=== PATIENT | male | born 1970 | race Caucasian/White ===

== ENCOUNTER 2022-09-30 07:32 | Outpatient (REF) | payer OTHER, SELFPAY ==
[2022-09-30 08:30] LABS: Hematocrit 42.4 % (42.0-52.0); Hemoglobin 14.9 g/dl (14.0-18.0); Mean Corpuscular HGB Conc 35.1 g/dl (31.0-36.0); Mean Corpuscular Hemoglobin 27.6 pg (27.0-33.0); Mean Corpuscular Volume 78.5 fL (80.0-98.0); Mean Platelet Volume 9.2 fL (9.4-12.4); Platelet Count 260 X10*3/uL (160-400); Red Cell Distribution Width 13.2 % (11.0-16.0); White Blood Count 4.9 X10*3/uL (4.8-10.8)
[2022-09-30 08:59] LABS: Alanine Aminotransferase 25 U/L (0-40); Albumin Level 4.4 g/dL (3.5-5.0); Alkaline Phosphatase 61 U/L (39-117); Anion Gap 11 (12-20); Aspartate Amino Transferase 18 U/L (5-37); Bilirubin Total 0.6 mg/dL (0.0-1.0); Blood Urea Nitrogen 14 mg/dL (9-16); Calcium 9.3 mg/dL (8.4-10.2); Carbon Dioxide 27 mmol/L (22-29); Chloride 106 mmol/L (96-108); Estimated Glomerular Filt Rate > 60; Glucose Fasting 105 mg/dL (60-99); Potassium 3.7 mmol/L (3.3-5.1); Sodium 140 mmol/L (135-145); Total Protein 6.9 g/dL (6.5-8.0)
[2022-09-30 09:17] LABS: Prostate Specific Antigen Scr 0.63 ng/mL (<0.05-4.0)
[2022-10-05 13:22] LABS: HCV Log PCR <1.18 NOT DETECTED Log IU/mL (NOT DETECTED); HepC Viral Load <15 NOT DETECTED IU/mL (NOT DETECTED)
== END 2022-09-30 07:33 | disposition home or self-care (01) ==
LOC: HO.LAB 07:32
PROVIDERS: PCP Physician Assistant; Visit Provider Physician Assistant
DX: Z13.1 Encounter for screening for diabetes mellitus (principal); Z12.11 Encounter for screening for malignant neoplasm of colon; Z12.5 Encounter for screening for malignant neoplasm of prostate; Z86.19 Personal history of other infectious and parasitic diseases
CPT/HCPCS: 36415; 80053; 84153; 85027; 87522

== ENCOUNTER 2022-10-13 07:35 | Outpatient (REF) | payer OTHER, SELFPAY ==
--- NOTE | ~2022-10-13 | US_ITS ---
EXAMINATION: US ABDOMEN COMPLETE CLINICAL INFORMATION: Personal history of other infectious parasitic diseases. COMPARISON: Ultrasound abdomen complete 08/07/2017 TECHNIQUE: Real-time imaging of the abdominal viscera. FINDINGS: PANCREAS: Normal. ABDOMINAL AORTA: The proximal, mid, and distal segments are normal in caliber. INFERIOR VENA CAVA: Visualized portions are normal. LIVER: Normal. The liver is normal in size. The liver contour is normal. Parenchymal echogenicity is normal. No focal hepatic lesion. There is no intrahepatic biliary duct dilatation seen. GALLBLADDER: Normal. The gallbladder is physiologically distended without evidence of stones, sludge, polyps, wall thickening or pericholecystic fluid. COMMON BILE DUCT: Normal in caliber measuring 0.4 cm in diameter. RIGHT KIDNEY: Benign-appearing renal cyst measuring 0.8 cm. No follow up imaging is recommended. No hydronephrosis or renal calculi. The kidney measures 10.9 cm in maximum dimension. LEFT KIDNEY: Normal. No hydronephrosis. No renal calculi or focal parenchymal lesions. The kidney measures 12.3 cm in maximum dimension. SPLEEN: Normal. The spleen measures 9.5 cm in maximum dimension. FREE FLUID: None. US/US abdomen complete IMPRESSION: Unremarkable abdominal ultrasound.
== END 2022-10-13 07:36 | disposition home or self-care (01) ==
LOC: HO.US 07:35
PROVIDERS: PCP Physician Assistant; Visit Provider Physician Assistant
DX: Z86.19 Personal history of other infectious and parasitic diseases (principal)
CPT/HCPCS: 76700

== ENCOUNTER 2022-11-14 15:23 | Outpatient (AMB) | payer OTHER, SELFPAY ==
--- NOTE | 2022-11-14 15:25 | MHC.OFFVIS ---
Intake Vital Signs 11/14/22 15:28 Height 5 ft 8 in Weight 174 lb 9.698 oz BMI 26.5 BP 129/69 Blood Pressure Location Rt brachial Position Sitting Pulse 66 Intake Visit Reasons: Colonoscopy screening Intake Note: Patient presents to in office visit today for colonoscopy screening. CC: Patient last colonoscopy w/Dr. Hampton, he does not remember exact date. Denies any GI symptoms or concerns today. 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 He is referred by Pieter Moe of [facility] primary care. PMX History of hepatitis C * SURGICAL HISTORY Lumbar laminectomy - L4=L5 Knee surgery - meniscus Pyloric stenosis at * ALLERGIES Fentanyl - skin eruption * [facility] LABS: Laboratory Tests 09/30/22 09/30/22 09/30/22 08:09 08:09 08:09 WBC 4.9 Hgb 14.9 Hct 42.4 Plt Count 260 Estimated GFR > 60 Total Bilirubin 0.6 AST 18 ALT 25 Alkaline Phosphata se 61 Hep C Viral Load <15 NOT DETECTED Hep C Viral Load L og <1.18 NOT DETECTE D US ABD 10/13/22 FINDINGS: PANCREAS: Normal. ABDOMINAL AORTA: The proximal, mid, and distal segments are normal in caliber. INFERIOR VENA CAVA: Visualized portions are normal. LIVER: Normal. The liver is normal in size. The liver contour is normal. Parenchymal echogenicity is normal. No focal hepatic lesion. There is no intrahepatic biliary duct dilatation seen. GALLBLADDER: Normal. The gallbladder is physiologically distended without evidence of stones, sludge, polyps, wall thickening or pericholecystic fluid. COMMON BILE DUCT: Normal in caliber measuring 0.4 cm in diameter. RIGHT KIDNEY: Benign-appearing renal cyst measuring 0.8 cm. No follow up imaging is recommended. No hydronephrosis or renal calculi. The kidney measures 10.9 cm in maximum dimension. LEFT KIDNEY: Normal. No hydronephrosis. No renal calculi or focal parenchymal lesions. The kidney measures 12.3 cm in maximum dimension. SPLEEN: Normal. The spleen measures 9.5 cm in maximum dimension. FREE FLUID: None. US/US abdomen complete IMPRESSION: Unremarkable abdominal ultrasound. ? TODAY'S VISIT He had a prior colonoscopy with Dr. Hampton that was performed for diarrhea and was normal. Now has only occasional diarrhea when he eats too much salad. He denies any bowel or upper GI problems. There are no prior problems with anesthesia or sedation. He denies any cardiac or respiratory problems. He had Hep C with tx and successful SVR. There is no known FHX of crc or polyps. [facility] Surgical History (Updated 11/14/22 @ 15:48 by ANA Luna) H/O laminectomy H/O: knee surgery S/P pyloromyotomy, follow-up exam Social History (Updated 09/27/22 @ 14:28 by Pieter Moe PA-C) Housing: Apartment Alcohol intake: former Year quit: 2017 Patient Tobacco Use Status: Former Tobacco user Quit Date: 2017 e-Cigarette/Vaping Use: Never Used Second Hand Smoke Exposure: Yes service: No Current occupational status: employed Current occupation: Seasonal employee Cognitive needs: No Hearing needs: No Vision needs: No Review of Systems Const Denies fatigue, Denies fever(s), Denies night sweats, Denies poor appetite and Denies weight loss ENT Reports Normal hearing present, Denies dental pain, Denies dysphagia, Denies hearing loss, Denies mouth pain, Denies odynophagia, Denies throat swelling, Denies tongue swelling and Reports other (Dentition adequate) Card Reports no additional complaints Resp Reports no additional complaints GI Denies abdominal pain, Denies melena, Denies bloating, Denies hematochezia, Denies constipation, Denies GI cramping, Denies dysphagia, Denies excessive flatus, Denies early satiety, Denies heartburn, Denies diarrhea, Denies nausea, Denies odynophagia, Denies vomiting and Denies hematemesis Skin/Breast Denies pruritus, Denies lesions, Denies rash and Denies jaundice Neuro Reports Normal hearing present and Denies Abnormal speech present Endo Denies fatigue Aller/Immun Denies throat swelling and Denies tongue swelling Physical Exam Const General: cooperative, no acute distress, well developed and well groomed Nutritional Appearance: well nourished and obese centrally obese Orientation/consciousness: oriented to person, oriented to place and oriented to time Limitations: No language barrier HEENT Head: Yes normocephalic and Yes atraumatic Eyes General: appearance normal, both eyes and all related structures Pupils: Equal, round and reactive pupils present Neck Neck: Yes normal visual inspection and Yes no lymphadenopathy Thyroid: Thyroid normal Resp Effort & Inspection: normal respiratory effort and able to speak in complete sentences Auscultation: clear to auscultation bilaterally Cardio Rate: regular rate Rhythm: regular rhythm Heart sounds: Normal, physiologic split S2 sound present Peripheral pulses: radial pulses present and posterior tibial pulses present GI Inspection: No distended, No Abdominal panniculus present, Yes obesity and Yes scar Palpation (GI): Soft to palpation, nontender, no guarding, not rigid and No hepatosplenomegaly present Percussion: Yes normal to percussion Auscultation: normal bowel sounds Rectal Exam - Male: Yes deferred Abdomen image: 1. well healed surgical scars 2. Skin General skin exam: no rashes or lesions noted, turgor normal, skin not dry, no jaundice, No spider nevi and no striae Rashes: no rashes Nails: normal Neuro General: oriented to person, oriented to place and oriented to time Cranial nerves: Yes Equal, round and reactive pupils present and Yes Normal hearing present Speech: No Abnormal speech present Extrem General: Yes normal to inspection, No clubbing, No cyanosis and No edema Psych Appearance: grossly normal and well kempt Mental Status: mental status grossly normal Speech and movement: Normal speech and movement present Affect: normal affect Attitude: cooperative Thought process: Normal thought process present and not confabulating Thought content: Normal thought content present Insight: Fair insight present (Psych) Judgement: Fair judgement present (Psych) Assessment & Plan Assessment & Plan (1) Pre-op examination: Code(s): Z01.818 - Encounter for other preprocedural examination Plan: He had a prior colonoscopy with Dr. Hampton that was performed for diarrhea and was normal. Now has only occasional diarrhea when he eats too much salad. He denies any bowel or upper GI problems. There are no prior problems with anesthesia or sedation. He denies any cardiac or respiratory problems. He had Hep C with tx and successful SVR. There is no known FHX of crc or polyps. Coding Level of Care Code New Pt Level 3 (87531) Diagnoses Pre-op examination Z01.818
[2022-11-14 15:28] VITALS: BP 129/69; PULSE 66; BMI 26.5
== END 2022-11-14 16:06 | disposition home or self-care (01) ==
PROVIDERS: PCP Physician Assistant; Visit Provider Nurse Practitioner
DX: Z01.818 Encounter for other preprocedural examination (principal); Z12.11 Encounter for screening for malignant neoplasm of colon
CPT/HCPCS: 99203

== ENCOUNTER → 2022-11-14 15:23 | Outpatient (BNVA) | payer OTHER, SELFPAY | PROVIDERS: PCP Physician Assistant; Visit Provider Nurse Practitioner | DX: Z01.818 Encounter for other preprocedural examination (principal) | CPT/HCPCS: 99202 ==

== ENCOUNTER 2023-02-15 14:45 | Outpatient (AMB) | payer OTHER, SELFPAY ==
[2023-02-15 14:56] VITALS: BP 116/76; PULSE 65; O2SAT 98; BMI 27.0
--- NOTE | 2023-02-15 14:56 | MHC.PC.OV ---
Vital Signs 02/15/23 14:56 Height 5 ft 8 in Weight 177 lb 8 oz BMI 27.0 BP 116/76 Blood Pressure Location Lt brachial Position Sitting Pulse 65 Pulse Oximetry (%) 98 Oxygen Delivery Method Room Air Intake Visit Reasons: pe Intake Note: Patient is here today for a physical. Manager Of Selection And Assessment Required: No Accompanied by: Self / Same As Patient Allergies fentanyl [Fentanyl] Allergy (Unknown, Verified 02/15/23 15:17) SWELLING Medication List - Last Reconciled 02/15/23 by Pieter Moe PA-C No Known Home Meds Tobacco use date assessed: 09/27/22 Dental Screening Dental Screen Date: 02/15/23 Did you have a dental visit in the last 12 months?: No Did you have a dental problem in the last 6 months where you did not have access to dental care?: No Was dental information given to patient?: No HPI pe HPI Details Patient is a 53-year-old today for annual physical. Previous PCP was Dr. Llanes. Patient has a history of chronic hepatitis C, lower back pain. 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 History of Hep C- viral load testing negative . Lumbar disc disease: Has had surgery on his lumbar disc and past with good effect on reducing his pain. He does intermittently lower lumbar spine pain which he has been managing with marijuana per .. Colon cancer screening: Has follow-up with GI and is scheduled for colonoscopy in near future. Vaccines: Up-to-date with COVID vaccine, and tetanus vaccine, Willing to get flu vaccine Laboratory Tests 09/30/22 08:09 Hgb 14.9 Creatinine 0.74 Fasting Glucose 105 H PSA Screen 0.63 PFSH Surgical History S/P pyloromyotomy, follow-up exam H/O: knee surgery H/O laminectomy Social History (Updated 02/15/23 @ 15:22 by Pieter Moe PA-C) Housing: Apartment Alcohol intake: former Year quit: 2017 Patient Tobacco Use Status: Former Tobacco user Quit Date: 2017 e-Cigarette/Vaping Use: Never Used Second Hand Smoke Exposure: Yes Substance Use Type: Marijuana service: No Current occupational status: employed Current occupation: Seasonal employee Cognitive needs: No Hearing needs: No Vision needs: No Questionnaire Thrive Questionnaire Date Thrive assessed: 09/27/22 ELEANOR-7 AMB Questionnaire ELEANOR-7 Date ELEANOR - 7 assessed: 09/27/22 Source: Developed by Drs. Hector Terry, Toya Mccray, Rupert Roy and colleagues, with an educational jose from [employer]. Review of Systems Const Denies body aches, Denies chills, Denies excessive sweating, Denies fatigue, Denies fever(s) and Denies headache(s) Eyes Denies blurry vision ENT Denies dysphagia, Denies vertigo, Denies dizziness, Denies headache(s), Denies hearing loss and Denies tinnitus Card Denies chest pain, Denies chest pain with activity, Denies syncope, Denies irregular heart rhythm and Denies dyspnea Resp Denies chest congestion, Denies cough, Denies hemoptysis, Denies dyspnea and Denies wheezing GI Denies abdominal pain, Denies melena, Denies hematochezia, Denies coffee ground emesis, Denies dysphagia, Denies diarrhea, Denies nausea and Denies vomiting Denies difficulty urinating, Denies dysuria, Denies urinary frequency, Denies urinary hesitancy and Denies urinary urgency Musc Denies arthralgias, Denies limited range of motion, Denies muscle cramps and Denies muscle weakness Skin/Breast Denies rash and Denies skin ulcer Neuro Denies Abnormal speech present, Denies confusion, Denies vertigo, Denies dizziness, Denies syncope, Denies headache(s), Denies memory loss and Denies seizure-like activity Psych Denies anxiety, Denies confusion, Denies depression, Denies memory loss, Denies panic attacks and Denies paranoia Endo Denies excessive sweating, Denies fatigue, Denies flushing, Denies polydipsia and Denies polyuria Aller/Immun Denies wheezing Physical exam (Primary Care) Vital Signs: Last Vital Signs Pulse 65 02/15/23 14:56 BP 116/76 02/15/23 14:56 Pulse Ox 98 02/15/23 14:56 Oxygen Delivery Method Room Air 02/15/23 14:56 BMI result Body Mass Index 27.0 Tobacco/Smoking Status: Tobacco use Status Tobacco use date assessed 09/27/22 02/15/23 15:10 Patient Tobacco Use Status Former Tobacco user 02/15/23 15:22 e-Cigarette/Vaping Use Never Used 02/15/23 15:22 Thrive Assessment: Date of Thrive Assessment Date Thrive assessed 09/27/22 02/15/23 15:10 Const General: cooperative, comfortable, no acute distress, alert and awake; No confusion Orientation/consciousness: oriented to person, oriented to place, patient oriented x3 and No confusion HENMT Head: Yes normocephalic Ears: external ears normal and TM's normal bilaterally Face and sinus: No sinus tenderness Mouth: Normal oral and palatal mucosa present and tongue normal Teeth and gingiva: dentition normal and gingiva normal Throat: Yes posterior oropharynx normal, Yes tonsils normal and Yes uvula midline Eyes Conjunctivae: conjunctivae normal Sclerae: sclerae normal Pupils: Equal, round and reactive pupils present EOM: EOMs intact bilaterally Direct Ophthalmoscopy: No no photophobia Neck Neck: Yes no lymphadenopathy, No tender and Yes no JVD Thyroid: Thyroid normal Carotids: no bruits Chest Chest palpation & inspection: no tenderness Resp Effort & Inspection: normal respiratory effort, no audible wheezes, not labored and no stridor Auscultation: no crackles, no rales, no rhonchi and no wheezes Cardio Jugular venous distension: no JVD Rate: regular rate, not bradycardic and not tachycardic Rhythm: regular rhythm Bruits: no carotid bruits Peripheral pulses: Peripheral pulses 2+ throughout GI Inspection: Yes normal to inspection, No abdominal wall ecchymosis and No visible herniation Palpation (GI): Soft to palpation, nontender, no guarding, not rigid and No hepatosplenomegaly present Auscultation: normoactive bowel sounds General: Yes no CVA tenderness Back/Spine/Pelvis Back: no CVA tenderness and No back tenderness Cervical Spine: cervical ROM normal Thoracic/Lumbar Spine: thoracic and lumbar spine normal to inspection, straight leg raise negative bilaterally, No thoraco-lumbar ROM limited and No lumbar spinal tenderness Skin Lesions: no lesions Rashes: no rashes Wounds: no wounds Neuro General: oriented to person, oriented to place, patient oriented x3, CN's II-XI intact bilaterally and No confusion Cranial nerves: Yes Equal, round and reactive pupils present and Yes Normal accommodation reflex present Cognition (Neuro): normal cognition Speech: No Abnormal speech present Gait exam (Neuro): Normal gait present Motor exam (neuro): 5/5 motor strength present throughout Extrem Right upper extremity: full ROM; no cyanosis Left upper extremity: full ROM; no cyanosis Right lower extremity: no edema Left lower extremity: no edema Psych Appearance: grossly normal Mental Status: mental status grossly normal Affect: normal affect Attitude: cooperative Thought process: Normal thought process present Office Procedures Flu Questionnaire Does the patient have a severe egg allergy?: No Does the patient have severe life threatening allergies?: No Does the patient have a fever or illness today?: No Has the patient ever had Guillain-Gilcrest Syndrome?: No Has the patient ever had any past reaction to a flu shot?: No Immunizations flu vacc [id number] 6mos up(PF) 60 mcg(15 mcgx4)/0.5 mL IM syringe Performing Provider: Pieter Moe PA-C Performing Location: [facility] Administered by: YNES Pruitt on 02/15/23 15:41 Dose Route Admin Location Dispensed Lot Number Expiration Date [employer] Maintenance Technician 0.5 mL IM Left Deltoid 0.5 mL [id number] 10/14/23 87310-804-71 [employer] VIS Given Date VIS Provided VIS Publication Date 02/15/23 Single Vaccine 20 Eligibility Eligibility Date Funding Source Not [facility] Eligible 02/15/23 Private Assessment and Plan Assessment & Plan (1) Annual physical exam: Code(s): Z00.00 - Encounter for general adult medical examination without abnormal findings (2) History of hepatitis C: Code(s): Z86.19 - Personal history of other infectious and parasitic diseases Plan: Does have history of appetite is C was treated. Most recent hepatitis C viral load undetectable. (3) Screening for diabetes mellitus (DM): Code(s): Z13.1 - Encounter for screening for diabetes mellitus (4) Colon cancer screening: Code(s): Z12.11 - Encounter for screening for malignant neoplasm of colon Plan: Has had pre colonoscopy screening. Will be awaiting colonoscopy procedure. (5) Epigastric abdominal tenderness on direct palpation: Code(s): R10.816 - Epigastric abdominal tenderness Plan: Still present though not severe. Ultrasound was of abdomen unremarkable Unclear etiology at this time as he has no GI complaints. (6) Impaired glucose metabolism: Code(s): R73.09 - Other abnormal glucose Plan: Most recent fasting labs showing elevated fasting blood sugar 105. Will recheck at next lab draw and add on A1c. Orders: Orders Hemoglobin A1c 11 Months R73.09 - Other abnormal glucose Comprehensive [place]. Panel Fast 11 Months R73.09 - Other abnormal glucose Prostate Specific Antigen Scr 11 Months R73.09 - Other abnormal glucose, Z12.5 - Encounter for screening for malignant neoplasm of prostate Influenza [id number] Immunization 02/15/23 Z23 - Encounter for immunization Coding Level of Care Code Est Pt Prev Care 40-64y(64661) Diagnoses Annual physical exam Z00.00 History of hepatitis C Z86.19 Screening for diabetes mellitus (DM) Z13.1 Colon cancer screening Z12.11 Epigastric abdominal tenderness on direct palpation R10.816 Impaired glucose metabolism R73.09
== END 2023-02-15 15:40 | disposition home or self-care (01) ==
PROVIDERS: PCP Physician Assistant; Visit Provider Physician Assistant
DX: Z23 Encounter for immunization (principal)
CPT/HCPCS: 90471; 90686; 99396

== ENCOUNTER 2024-06-04 08:33 | Outpatient (AMB) | payer OTHER, SELFPAY ==
--- OUTSIDE RECORDS SUMMARY | 2024-06-04 08:38 | XMS_ITS | Clinical Summary ---
Author Organization [facility] Address [address] [place] [address] Phone Care Team Providers Care Clinical Radiologist Name Role Phone Pieter Moe Primary Care Provider Allergies Active Allergy Reactions Criticality Noted Date Comments Fentanyl Hcl Hives 02/28/2024 Medications No known medications Surgical History Surgery Date Site/Laterality Comments BACK SURGERY Social History Tobacco Use Types Packs/Day Years Used Date Smoking Tobacco: Never Smokeless Tobacco: Never Tobacco Cessation:Counseling Given: Not Answered Sex and Gender Information Value Date Recorded Sex Assigned at Male 02/28/2024 11:11 AM EST Legal Sex Male 1:09 PM EST Gender Identity Male 02/28/2024 11:11 AM EST Sexual Orientation Straight 02/28/2024 11 :11 AM EST Obstetrics History Last Filed Vital Signs Vital Sign Reading Time Taken Comments Blood Pressure 146/91 02/28/2024 11:09 AM EST Pulse 89 02/28/2024 11:09 AM EST Temperature 37 ??C (98.6 ??F) 02/28/2024 11: 09 AM EST Respiratory Rate 20 02/28/2024 11:0 9 AM EST Oxygen Saturation 97% 02/28/2024 11: 09 AM EST Inhaled Oxygen Concentration - - Weight 78.4 kg (172 lb 12.8 oz) 024 11:09 AM EST Height 172.7 cm (5' 8 ) 02/28/2024 11:0 9 AM EST Body Mass Index 26.27 02/28/2024 11:09 AM EST Plan of Treatment Health Maintenance Due Date Last Done Comments Hepatitis B Vaccines (3 of 3 - 19+ 3-dose series) 07/12/2016 05/17/2016, 05/16/2016, 11/24/2015 Pneumococcal Vaccine: 50+ Years (1 of 1 - PCV) 02/15/2022 Zoster Vaccines (1 of 2) 02/15/2022 Cholesterol Screening (Lipid Panel) 03/14/2022 Colorectal Cancer Screening: Colonoscopy 03/14/2022 Depression Screening 03/14/2022 HIV Screening 03/14/2022 Hepatitis C Screening 03/14/2022 Social Influencers of Health Screening 03/14/2022 COVID-19 Vaccine (2 - 2023-2 5 season) 2023 02/19/2021 Influenza Vaccine (#1) 2023 02/15/2023 DTaP,Tdap,and Td Vaccines (2 - Td or Tdap) 05/17/2026 05/17/2016 HIB Vaccines Aged Out No longer eligi ble based on patient's age to complete this topic HPV Vaccines Aged Out No longer eligi ble based on patient's age to complete this topic Hepatitis A Vaccines Aged Out No long er eligible based on patient's age to complete this topic IPV Vaccines Aged Out No longer eligi ble based on patient's age to complete this topic MMR Vaccines Aged Out No longer eligi ble based on patient's age to complete this topic Meningococcal ACWY Vaccine Aged Out N o longer eligible based on patient's age to complete this topic Meningococcal B Vacine Aged Out No lo nger eligible based on patient's age to complete this topic Pneumococcal Vaccine: Pediatrics (0 to 5 Years) and At-Risk Patients (6 to 64 Years) Aged Out No longer eligible b ased on patient's age to complete this topic RSV Immunization Patients Under 20 months Aged Out No longer eligible b ased on patient's age to complete this topic Varicella Vaccines Aged Out No longer eligible based on patient's age to complete this topic Insurance Care Teams Clinical Radiologist Relationship Specialty Start Date End Date Pieter Moe PA [address] [place] [address] PCP - General Physician Attendance Clerk 02/28/24
--- NOTE | 2024-06-04 08:44 | A.OFFPC_ITS ---
Vital Signs 06/04/24 08:45 Height 5 ft 8 in Weight 176 lb BMI 26.8 BP 104/60 Blood Pressure Location Lt brachial Position Sitting Pulse 90 Pulse Source Pulse Oximeter Temp 97.5 F Temp Source Temporal Artery Scan Pulse Oximetry (%) 98 Oxygen Delivery Method Room Air Intake Visit Reasons: PE and emd review Allergies fentanyl [Fentanyl] Allergy (Unknown, Verified 06/04/24 08:50) SWELLING Medication List - Last Reconciled 06/04/24 by Pieter Moe PA-C No Known Home Meds Tobacco use date assessed: 09/27/22 Dental Screening Dental Screen Date: 02/15/23 HPI PE and emd review HPI Details Patient is a 54 -year-old today for annual physical. Patient has a history of chronic hepatitis C, lower back pain. 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 Concern--> does report having bronchitis recently from a viral upper respiratory infection. He reports right groin pain since he has been coughing. No notable lump in the area. History of Hep C- viral load testing negative . .. Colon cancer screening: Had colonoscopy with Dr. Hampton in the past though unclear what year.. Awaiting a call back for colonoscopy from GI Vaccines: Up-to-date with COVID vaccine, and tetanus vaccine, Willing to get flu vaccine , considering pneumonia vaccine [facility] Surgical History S/P pyloromyotomy, follow-up exam H/O: knee surgery H/O laminectomy Social History (Updated 06/04/24 @ 08:55 by Pieter Moe PA-C) Housing: Apartment Alcohol intake: former Year quit: 2018 Patient Tobacco Use Status: Former Tobacco user e-Cigarette/Vaping Use: Never Used Second Hand Smoke Exposure: Yes Substance Use Type: Marijuana service: No Current occupational status: employed Current occupation: Seasonal employee- [employer] Cognitive needs: No Hearing needs: No Vision needs: No Questionnaire PHQ-9 Over the last 2 weeks, how often have you been bothered by any of the following problems? 1. Little interest or pleasure in doing things: not at all 2. Feeling down, depressed, or hopeless: not at all 3. Trouble falling or staying asleep, or sleeping too much: not at all 4. Feeling tired or having little energy: not at all 5. Poor appetite or overeating: not at all 6. Feeling bad about yourself - or that you are a failure or have let yourself or your family down: not at all 7. Trouble concentrating on things, such as reading the newspaper or watching television: not at all 8. Moving or speaking so slowly that other people could have noticed. Or the opposite - being so fidgety or restless that you have been moving around a lot more than usual: not at all 9. Thoughts that you would be better off or of hurting yourself in some way: not at all Total score: 0 Depression Screening Interpretation: Negative Depression Screening Done: Yes 97598 - PHQ-9 Billing: Yes Source: Developed by Drs. Hector Terry, Toya Mccray, Rupert Roy and colleagues, with an educational jose from [employer]. Thrive Questionnaire Date Thrive assessed: 06/04/24 I am a: Patient What is your living situation today?: I have a steady place to live Within the past 12 months, did the food you bought not last and you didn't have the money to get more?: I choose not to answer this question Within the past 12 months, did you worry whether your food would run out before you got money to buy more?: I choose not to answer this question Do you have trouble paying for medicines?: No Do you have trouble getting transportation to medical appointments?: No Do you have trouble paying your heating and electricity bill?: No Do you have trouble taking care of your child, family member or friend?: No Do you have trouble with day-to-day activities such as bathing, preparing meals, shopping, managing finances, etc.?: No Are you currently unemployed and looking for a job?: I choose not to answer this question Are you interested in more education?: I choose not to answer this question Please select the resources that you would like help with: None Currently or been in a relationship where the following occur: No concerns reported and I choose not to answer THRIVE Score: 0 AUDIT C Alcohol Use Questionnaire (AUDIT-C) 1. How often do you have a drink containing alcohol?: Never 3. How often do you have six or more drinks on one occasion?: Never Total Score: 0 ELEANOR-7 AMB Questionnaire ELEANOR-7 Date ELEANOR - 7 assessed: 06/04/24 Feeling nervous, anxious, or on edge: 0 = Not at all Not being able to stop or control worryin = Not at all Worrying too much about different things: 0 = Not at all Trouble relaxin = Not at all Being so restless that it is hard to sit still: 0 = Not at all Becoming easily annoyed or irritable: 0 = Not at all Feeling afraid as if something awful might happen: 0 = Not at all Total ELEANOR-7 score (0-4 normal; 5-9 mild; 10-14 moderate; 15-21 severe): 0 Source: Developed by Drs. Hector Terry, Toya Mccray, Rupert Roy and colleagues, with an educational jose from [employer]. ELEANOR-7 Assessment Billing ELEANOR-7 Assessment Tool: ELEANOR-7 Assessment 48080 Review of Systems Const Denies body aches, Denies chills, Denies excessive sweating, Denies fatigue, Denies fever(s) and Denies headache(s) Eyes Denies blurry vision ENT Denies dysphagia, Denies vertigo, Denies dizziness, Denies headache(s), Denies hearing loss and Denies tinnitus Card Denies chest pain, Denies chest pain with activity, Denies syncope, Denies irregular heart rhythm and Denies dyspnea Resp Denies chest congestion, Denies cough, Denies hemoptysis, Denies dyspnea and Denies wheezing GI Denies abdominal pain, Denies melena, Denies hematochezia, Denies coffee ground emesis, Denies dysphagia, Denies diarrhea, Denies nausea and Denies vomiting Denies difficulty urinating, Denies dysuria, Denies urinary frequency, Denies urinary hesitancy and Denies urinary urgency Musc Denies arthralgias, Denies limited range of motion, Denies muscle cramps and Denies muscle weakness Skin/Breast Denies rash and Denies skin ulcer Neuro Denies Abnormal speech present, Denies confusion, Denies vertigo, Denies dizziness, Denies syncope, Denies headache(s), Denies memory loss and Denies seizure-like activity Psych Denies anxiety, Denies confusion, Denies depression, Denies memory loss, Denies panic attacks and Denies paranoia Endo Denies excessive sweating, Denies fatigue, Denies flushing, Denies polydipsia and Denies polyuria Aller/Immun Denies wheezing Physical exam (Primary Care) Vital Signs: Last Vital Signs Temp 97.5 F 06/04/24 08:45 Pulse 90 06/04/24 08:45 BP 104/60 06/04/24 08:45 Pulse Ox 98 06/04/24 08:45 Oxygen Delivery Method Room Air 06/04/24 08:45 BMI result Body Mass Index 26.8 Tobacco/Smoking Status: Tobacco use Status Tobacco use date assessed 09/27/22 06/04/24 08:48 Patient Tobacco Use Status Former Tobacco user 06/04/24 08:48 e-Cigarette/Vaping Use Never Used 06/04/24 08:48 PHQ-9: PHQ-9 Score PHQ-9: Total score 0 06/04/24 08:48 Depression Screening Interpretation: Negative Thrive Assessment: Date of Thrive Assessment Date Thrive assessed 06/04/24 06/04/24 08:48 Currently or been in a relationship where the following occur: No concerns reported and I choose not to answer Const General: cooperative, comfortable, no acute distress, alert and awake; No confusion Orientation/consciousness: oriented to person, oriented to place, patient oriented x3 and No confusion HENMT Head: Yes normocephalic Ears: external ears normal and TM's normal bilaterally Face and sinus: No sinus tenderness Mouth: Normal oral and palatal mucosa present and tongue normal Teeth and gingiva: dentition normal and gingiva normal Throat: Yes posterior oropharynx normal, Yes tonsils normal and Yes uvula midline Eyes Conjunctivae: conjunctivae normal Sclerae: sclerae normal Pupils: Equal, round and reactive pupils present EOM: EOMs intact bilaterally Direct Ophthalmoscopy: No no photophobia Neck Neck: Yes no lymphadenopathy, No tender and Yes no JVD Thyroid: Thyroid normal Carotids: no bruits Chest Chest palpation & inspection: no tenderness Resp Effort & Inspection: normal respiratory effort, no audible wheezes, not labored and no stridor Auscultation: no crackles, no rales, no rhonchi and no wheezes Cardio Jugular venous distension: no JVD Rate: regular rate, not bradycardic and not tachycardic Rhythm: regular rhythm Bruits: no carotid bruits Peripheral pulses: Peripheral pulses 2+ throughout GI Inspection: Yes normal to inspection, No abdominal wall ecchymosis and No visible herniation Palpation (GI): Soft to palpation, nontender, no guarding, not rigid and No hepatosplenomegaly present Auscultation: normoactive bowel sounds General: Yes no CVA tenderness Back/Spine/Pelvis Back: no CVA tenderness and No back tenderness Cervical Spine: cervical ROM normal Thoracic/Lumbar Spine: thoracic and lumbar spine normal to inspection, straight leg raise negative bilaterally, No thoraco-lumbar ROM limited and No lumbar spinal tenderness Skin Lesions: no lesions Rashes: no rashes Wounds: no wounds Neuro General: oriented to person, oriented to place, patient oriented x3, CN's II-XI intact bilaterally and No confusion Cranial nerves: Yes Equal, round and reactive pupils present and Yes Normal accommodation reflex present Cognition (Neuro): normal cognition Speech: No Abnormal speech present Gait exam (Neuro): Normal gait present Motor exam (neuro): 5/5 motor strength present throughout Extrem Right upper extremity: full ROM; no cyanosis Left upper extremity: full ROM; no cyanosis Right lower extremity: no edema Left lower extremity: no edema Psych Appearance: grossly normal Mental Status: mental status grossly normal Affect: normal affect Attitude: cooperative Thought process: Normal thought process present Coding Level of Care Code Est Pt Prev Care 40-64y(91117) Diagnoses Annual physical exam Z00.00 Impaired glucose metabolism R73.09 Right inguinal pain R10.31 Colon cancer screening Z12.11 Additional Codes ELEANOR-7 Assessment Billing - ELEANOR-7 Assessment Tool: ELEANOR-7 Assessment 87641 ([id number]) PHQ-9 - 24457 - PHQ-9 Billing: Yes ([id number]) Assessment & Plan Assessment & Plan (1) Annual physical exam: Code(s): Z00.00 - Encounter for general adult medical examination without abnormal findings Category: Medical Plan: As per HPI (2) Impaired glucose metabolism: Code(s): R73.09 - Other abnormal glucose Category: Medical Plan: Patient has a history of impaired glucose metabolism. Will recheck fasting labs including A1c. He will continue working on dietary modifications. (3) Right inguinal pain: Code(s): R10.31 - Right lower quadrant pain Category: Medical Plan: He reports over last 2 weeks having a right groin tenderness since having an upper respiratory bronchitis. Unable to appreciate any lump on physical exam today. Will watch and wait at this time and if lump appears or pain gets worse will consider CT abdomen pelvis to evaluate for hernia. (4) Colon cancer screening: Code(s): Z12.11 - Encounter for screening for malignant neoplasm of colon Category: Medical Plan: Has had an appointment with GI quite some time ago. He has not been called for colonoscopy procedure Orders: Orders Comprehensive [place]. Panel Fast Today R73.09 - Other abnormal glucose Hemoglobin A1c Today R73.09 - Other abnormal glucose Hepatitis C Viral Load Today Z86.19 - Personal history of other infectious and parasitic diseases Prostate Specific Antigen Scr Today Z12.11 - Encounter for screening for malignant neoplasm of colon, Z12.5 - Encounter for screening for malignant neoplasm of prostate Referrals Gastroenterology Referral Z12.11 - Encounter for screening for malignant neoplasm of colon
[2024-06-04 08:45] VITALS: BP 104/60; PULSE 90; TEMP 36.4; O2SAT 98; BMI 26.8
== END 2024-06-04 09:03 | disposition home or self-care (01) ==
PROVIDERS: PCP Physician Assistant; Visit Provider Physician Assistant
DX: Z00.00 Encounter for general adult medical examination without abnormal findings (principal); R73.09 Other abnormal glucose; R10.31 Right lower quadrant pain; Z12.11 Encounter for screening for malignant neoplasm of colon

== ENCOUNTER → 2024-06-04 08:33 | Outpatient (BNVA) | payer OTHER, SELFPAY | PROVIDERS: PCP Physician Assistant; Visit Provider Physician Assistant | DX: Z00.00 Encounter for general adult medical examination without abnormal findings (principal); R73.09 Other abnormal glucose; R10.31 Right lower quadrant pain | CPT/HCPCS: 96127; 99396 ==

== ENCOUNTER 2024-12-02 13:20 | Outpatient (AMB) | payer OTHER, SELFPAY ==
--- NOTE | 2024-12-02 13:22 | A.OFFPC_ITS ---
Vital Signs 12/02/24 13:23 12/02/24 13:43 Height 5 ft 8 in Weight 177 lb 6 oz BMI 27.0 BP 140/70 H 142/78 H Blood Pressure Location Lt brachial Position Sitting Pulse 81 Pulse Source Pulse Oximeter Temp 97.1 F Temp Source Temporal Artery Scan Pulse Oximetry (%) 98 Oxygen Delivery Method Room Air Intake Visit Reasons: High B/P readings Intake Note: Patient is here to follow up on High BP readings. Can Conveyor Feeder Required: No Polymer Tester: Not Required per policy Accompanied by: Self / Same As Patient Allergies fentanyl (Fentanyl) Allergy (Unknown, Verified 12/02/24 13:32) SWELLING Medication List - Last Reconciled 12/02/24 by Pieter Moe PA-C clindamycin HCl 450 mg PO TID Tobacco use date assessed: 12/02/24 Dental Screening Dental Screen Date: 12/02/24 Did you have a dental visit in the last 12 months?: Yes Did you have a dental problem in the last 6 months where you did not have access to dental care?: No Was dental information given to patient?: Patient has dentist HPI High B/P readings HPI Details Patient is a 54-year-old male here today for a problem visit. Patient has a past medical history significant for chronic low back pain, impaired glucose metabolism and history of hep C. The patient reports a history of high blood pressure, initially noted during a recent emergency room visit where he was hospitalized for three days. He has experienced elevated readings at various healthcare settings, including urgent care and the emergency room, with a current reading of 140/70 mmHg. The patient has a family history of hypertension and has recently made lifestyle changes, including reducing alcohol and caffeine intake. The patient also reports a dental infection following a root canal procedure, which led to swelling and required antibiotic treatment with amoxicillin. Despite treatment, he experienced significant facial swelling, prompting a visit to the emergency room where a CT scan confirmed the infection. Additionally, the patient has experienced rectal bleeding, described as bright red and significant enough to prompt an emergency room visit. A CT scan revealed sigmoid colon inflammation, consistent with findings from a previous study in 2021. The patient has not yet undergone a colonoscopy, despite previous referrals, due to scheduling delays. [facility] Surgical History History of root canal procedure S/P pyloromyotomy, follow-up exam H/O: knee surgery H/O laminectomy Social History Housing: Apartment Alcohol intake: former Year quit: 2018 Patient Tobacco Use Status: Former Tobacco user e-Cigarette/Vaping Use: Never Used Second Hand Smoke Exposure: Yes Substance Use Type: Marijuana service: No Current occupational status: employed Current occupation: [employer] employee- [employer] Cognitive needs: No Hearing needs: No Vision needs: No Questionnaire Thrive Questionnaire Date Thrive assessed: 06/04/24 I am a: Patient What is your living situation today?: I have a steady place to live Within the past 12 months, did the food you bought not last and you didn't have the money to get more?: I choose not to answer this question Within the past 12 months, did you worry whether your food would run out before you got money to buy more?: I choose not to answer this question Do you have trouble paying for medicines?: No Do you have trouble getting transportation to medical appointments?: No Do you have trouble paying your heating and electricity bill?: No Do you have trouble taking care of your child, family member or friend?: No Do you have trouble with day-to-day activities such as bathing, preparing meals, shopping, managing finances, etc.?: No Are you currently unemployed and looking for a job?: I choose not to answer this question Are you interested in more education?: I choose not to answer this question Please select the resources that you would like help with: None THRIVE Score: 0 ELEANOR-7 AMB Questionnaire ELEANOR-7 Date ELEANOR - 7 assessed: 06/04/24 Source: Developed by Drs. Hector Terry, Toya Mccray, Rupert Roy and colleagues, with an educational jose from [employer]. Review of Systems Const Denies headache(s) Eyes Denies loss of vision ENT Denies vertigo, Denies dizziness, Denies headache(s) and Denies sore throat Card Denies chest pain, Denies leg edema and Denies lightheadedness Resp Denies cough, Denies hemoptysis and Denies wheezing GI Denies abdominal pain, Denies melena, Denies constipation, Denies diarrhea and Denies vomiting Denies dysuria, Denies urinary frequency and Denies urinary urgency Musc Denies arthralgias, Denies joint swelling, Denies numbness and Denies tingling Neuro Denies Abnormal speech present, Denies behavioral changes, Denies vertigo, Denies dizziness, Denies headache(s), Denies loss of vision, Denies memory loss, Denies numbness and Denies tingling Psych Denies anxiety, Denies behavioral changes, Denies depression, Denies memory loss and Denies panic attacks Herber/Lymph Denies easy bleeding and Denies easy bruising Aller/Immun Denies wheezing Physical exam (Primary Care) Tobacco/Smoking Status: Tobacco use Status Tobacco use date assessed 09/27/22 06/04/24 08:48 Patient Tobacco Use Status Former Tobacco user 06/04/24 08:55 e-Cigarette/Vaping Use Never Used 06/04/24 08:55 Thrive Assessment: Date of Thrive Assessment Date Thrive assessed 06/04/24 06/04/24 08:48 Const General: healthy appearing, no acute distress, alert and awake Nutritional Appearance: well nourished Orientation/consciousness: oriented to person, oriented to place and oriented to time HENMT Ears: TM's normal bilaterally General nose exam: Normal nasal mucous membranes and turbinates present Eyes Conjunctivae: conjunctivae normal Sclerae: sclerae normal Pupils: Equal, round and reactive pupils present Neck Neck: Yes no lymphadenopathy and Yes no JVD Thyroid: Thyroid normal Carotids: no bruits Resp Effort & Inspection: normal respiratory effort and not tachypneic Auscultation: no crackles, no rales, no rhonchi and no wheezes Cardio Rate: regular rate Rhythm: regular rhythm Heart sounds: no murmurs and normal S1 and S2 GI Palpation (GI): Soft to palpation, nontender, no hepatomegaly and no s plenomegaly Auscultation: normal bowel sounds Skin General skin exam: no rashes or lesions noted and dry skin Neuro General: oriented to person, oriented to place and oriented to time Cranial nerves: Yes Equal, round and reactive pupils present Speech: No Abnormal speech present Gait exam (Neuro): Normal gait present Motor exam (neuro): no tremor noted Extrem Right upper extremity: full ROM Left upper extremity: full ROM Right lower extremity: full ROM; no edema Left lower extremity: full ROM; no edema Psych Mental Status: mental status grossly normal Speech and movement: Normal speech and movement present Affect: normal affect Attitude: cooperative Thought process: Normal thought process present Coding Level of Care Code Est Pt Level 4 (73573) Diagnoses Primary hypertension I10 Hypertension type: primary hypertension Bright red blood per rectum K62.5 Assessment & Plan Assessment & Plan (1) HTN (hypertension): Code(s): I10 - Essential (primary) hypertension Category: Medical Qualifiers: Hypertension type: primary hypertension Qualified Code(s): I10 - Essential (primary) hypertension Plan: The patient will be started on lisinopril 5 mg daily to manage elevated blood pressure readings, with a follow-up in six weeks to assess efficacy. Lifestyle modifications, including reduced alcohol and caffeine intake, will be reinforced. A prescription for a home blood pressure monitor will be provided to track readings at home. (2) Bright red blood per rectum: Code(s): K62.5 - Hemorrhage of anus and rectum Category: Medical Plan: The patient will be referred for a colonoscopy to investigate the cause of rectal bleeding and sigmoid colon inflammation. The urgency of the referral will be emphasized due to the significant bleeding and previous findings of sigmoid colon inflammation. Orders: Referrals Gastroenterology Referral K62.5 - Hemorrhage of anus and rectum Medications: New lisinopril 5 mg PO DAILY 30 tabs 1RF 30 days I10 - Essential (primary) hypertension
[2024-12-02 13:23] VITALS: BP 140/70; PULSE 81; TEMP 36.2; O2SAT 98; BMI 27.0
[2024-12-02 13:43] VITALS: BP 142/78
--- OUTSIDE RECORDS SUMMARY | 2024-12-02 14:36 | XMS_ITS | Patient Health Record ---
Author Organization [facility] Address [address] [place] [id number] Care Team Providers Care Consumer Advocate Name Role Phone NONE, NONE Primary Care Provider Hector Ashraf [phone] Allergies Allergen (clinical drug ingredient) Drug/Non Drug Allergy documented on EMR Reaction Allergy Type Onset Date Status fentanyl Fentanyl Unknown Drug Allergy Active Reason For Referral No Information Medications Medication SIG (Take, Route, Frequency, Duration) Notes Start Date End Date Status Dulcolax (colon prep) 5 MG take at 3:00 p.m and 7:00p.m. Orally two tablets twice a day for one day for 1 day 01/12/2018 Active MiraLax (colon prep) 8.3 ounce ((238) grams mixed with Gatorade or Crystal Light orally begin at 5:00 p.m. the day before the procedure for 1 day 01/12/2018 Active Social History Tobacco Use: Social History Observation Description Date Details (start date - stop date) Former Smoker NA - NA Tobacco Use/Smoking Question Answer Notes Patient is a former smoker How long has it been since you last smoked? 6-12 months Section Notes: Quit alcohol 3 months ago-2016; smokes cigs and marijuana Quit smoking and alcohol in 12/2016, smokes marijuana daily Quit smoking and alcohol in 12/2016, smokes marijuana daily Problems Problem Type SNOMED Code ICD Code Onset Dates Problem Status W/U Status Risk Notes Problem [id number] Chronic hepatitis C without hepatic coma (B18.2) Active confirmed Plan Of Treatment Pending Test Test Name Order Date BUN 07/11/2017 CREATININE 07/11/2017 LIVER PROFILE 08/28/2017 LIVER PROFILE 07/11/2017 CBC w DIFF 07/11/2017 CBC w DIFF 08/28/2017 PROTHROMBIN TIME (PT, INR) 07/11/2017 CLOSTRIDIUM DIFF TOXIN A&B (C DIFF) 12/16 ALPHA-FETOPROTEIN,TUMOR MARKER 8 HEPATITIS C VIRAL LOAD 08/28/2017 HEPATITIS C VIRAL LOAD 07/11/2017 GIARDIA AG, STOOL EIA 01/09/2018 OVA & PARASITES (O&P) 01/09/2018 CULTURE, STOOL 01/09/2018 US ABD 07/28/2016 HCV LIVER FIBROSIS, FIBRO TEST 8 STOOL WBC 01/09/2018 Future Test Test Name Order Date COLONOSCOPY 01/09/2018 Insurance Providers Payer Name Payer Address Payer Phone Subscriber Number Group Number Insured Name Patient Relationship to Insured Coverage Start Date Coverage End Date [employer] [facility] [address] [address] [place], [place] [id number] ARON GARCIA Self - patient is the insured MEDICAID OF [employer] [address] [place] [address] [id number] ARON GARCIA Self - patient is the insured Medical (General) History Medical History History ICD Code Hepatitis C--describes a anna er biopsy at [facility] > 20 years ago--never been treated; Hep C Genotype 1A, fibrosis score of F2 in 2017, normal alpha-fetoprotein level in 2016, and ultrasound consistent with a solitary hemangioma with elastography of F2. Finished 12 weeks of Epclusa in 11/2017--Hep C was neg. in 10/2017 with normal LFT's Denies HI,DM,CVA,Lung disease,renal dise ase EtOH abuse--last drank in 12/2016 Substance abuse--previous na titus cocaine, no IVDA---now only using marijuana daily Bipolar disease Reports HIV test was negative Surgical History Surgery Date(Month/Year) Back surgery 2006 Right knee
--- OUTSIDE RECORDS SUMMARY | 2024-12-02 14:36 | XMS_ITS | Clinical Summary ---
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 7:45 AM EDT) ABO Group O 09/24/2024 9:[address] [facility] Rh Type Positive 09/24/2024 9:[address] [facility] Antibody Screen Negative 09/24/2024 9:[address] [facility] Blood Venous blood specimen / Unknown Venipuncture / Unknown 09/24/2024 7:45 AM EDT 09/24/2024 8:17 AM EDT us Tye Saravia MD LAB BLOOD BANK TEST ORDERABLES Final Result Performing Organization Address [facility]/ZIP Co de Phone Number [facility] [address] [place] [address], [place] [phone] * Lipase (09/24/2024 7:45 AM EDT) Pathologist [facility] Lipase 18 13 - 75 unit/L LAB CHEMISTRY METHOD 09/24/2024 8:[address] [facility] Blood Venous blood specimen / Unknown Venipuncture / Unknown 09/24/2024 7:45 AM EDT 09/24/2024 8:16 AM EDT us Tye Saravia MD LAB BLOOD ORDERABLES Final Resu lt Performing Organization Address [facility]/ZIP Co de Phone Number [facility] [address] [place] [address], [place] [phone] * Hemoglobin A1c (09/24/2024 7:45 AM EDT) Pathologist [facility] Hemoglobin A1C 5.3 <6.5 % LAB CHEMISTRY METHOD 09/24/2024 8:[address] [facility] Mean Bld Glu Estim. 105 mg/dL LAB CHEMISTRY METHOD 09/24/2024 8:[address] [facility] Blood Venous blood specimen / Unknown Venipuncture / Unknown 09/24/2024 7:45 AM EDT 09/24/2024 8:17 AM EDT Anna Figueroa NP LAB BLOOD ORDERABLES Fin al Result Performing Organization Address [facility]/ZIP Co de Phone Number [facility] [address] [place] [address], [place] [phone] * Ethanol (09/24/2024 7:45 AM EDT) Pathologist [facility] Ethanol Level <3 0 - 10 mg/dL LAB CHEMISTRY METHOD 09/24/2024 2:[address] [facility] Blood Venous blood specimen / Unknown Venipuncture / Unknown 09/24/2024 7:45 AM EDT 09/24/2024 8:16 AM EDT Anna Figueroa NP LAB BLOOD ORDERABLES Fin al Result Performing Organization Address [facility]/ZIP Co de Phone Number [facility] [address] [place] [address], [place] [phone] * (ABNORMAL) Comprehensive metabolic panel (09/24/2024 7:45 AM EDT) [facility] Sodium 139 133 - 145 mmol/L LAB CHEMISTRY METHOD 09/24/2024 8:[address] [facility] Potassium 3.6 3.5 - 5.5 mmol/L LAB CHEMISTRY METHOD 09/24/2024 8:[address] [facility] Chloride 104 96 - 110 mmol/L LAB CHEMISTRY METHOD 09/24/2024 8:[address] [facility] CO2 30 21 - 32 mmol/L LAB CHEMISTRY METHOD 09/24/2024 8:[address] [facility] Anion Gap 5 3 - 11 LAB CHEMISTRY METHOD 09/24/2024 8:[address] [facility] Glucose 127(H) 70 - 100 mg/dL LAB CHEMISTRY METHOD 09/24/2024 8:48 AM [facility] BUN 11 5 - 25 mg/dL LAB CHEMISTRY METHOD 09/24/2024 8:48 AM [facility] Creatinine 0.73 0.70 - 1.30 mg/dL LAB CHEMISTRY METHOD 09/24/2024 8:48 AM [facility] eGFR 109 >=60 mL/min/1. 73m2 LAB CHEMISTRY METHOD 09/24/2024 8:48 AM [facility] Comment:Calculation based on the Chronic Kidney Disease Epidemiology Collaboration (CKD-EPI) equation refit without adjustment for race. BUN/Creatinine Ratio 15.1 LAB CHEMISTRY METHOD 09/24/2024 8:48 AM [facility] Calcium 8.7 8.5 - 10.5 mg/dL LAB CHEMISTRY METHOD 09/24/2024 8:48 AM [facility] AST (SGOT) 47(H) 10 - 42 unit/L LAB CHEMISTRY METHOD 09/24/2024 8:48 AM [facility] ALT (SGPT) 67(H) 10 - 60 unit/L LAB CHEMISTRY METHOD 09/24/2024 8:48 AM [facility] Alkaline Phosphatase 78 42 - 121 unit/L LAB CHEMISTRY METHOD 09/24/2024 8:48 AM [facility] Total Protein 6.5 6.0 - 8.0 g/dL LAB CHEMISTRY METHOD 09/24/2024 8:48 AM [facility] Albumin 3.8 3.2 - 5.0 g/dL LAB CHEMISTRY METHOD 09/24/2024 8:48 AM [facility] Total Bilirubin 0.5 0.0 - 1.4 mg/dL LAB CHEMISTRY METHOD 09/24/2024 8:48 AM [facility] Blood Venous blood specimen / Unknown Venipuncture / Unknown 09/24/2024 7:45 AM EDT 09/24/2024 8:16 AM EDT us Tye Saravia MD LAB BLOOD ORDERABLES Final Resu lt LOW [facility] ([facility] [address] [place] [address], [place] [phone] from Last 3 Months Insurance [facility] [place] [employer] Advance Directives * Full Code - Confirmed (Latest Code Status on File) Date Activated Date Inactivated Comments 09/24/2024 2:01 PM 09/26/2024 7:[address] [facility] was ascertained in the following way: Code status discussion: discussion with patient To update the patient's code status, place a code status order. Do not modify or discontinue any currently active code status orders. * Full Code - Default Date Activated Date Inactivated Comments 09/24/2024 12:05 PM 09/24/2024 2:01 PM This is ord er is used when code status has not been discussed with the patient, or code status is otherwise unknown/unconfirmed To update the patient's code status, place a code status order. Do not modify or discontinue any currently active code status orders. Care Teams Cardroom Worker Relationship Specialty Start Date End Date Pieter Moe PA [address] [place] [phone] PCP - General Physician Bingo Checker 02/28/24
== END 2024-12-02 13:51 | disposition home or self-care (01) ==
LOC: HO.HMCH 13:20
PROVIDERS: PCP Physician Assistant; Visit Provider Physician Assistant
DX: I10 Essential (primary) hypertension (principal); K62.5 Hemorrhage of anus and rectum

== ENCOUNTER → 2024-12-02 13:20 | Outpatient (BNVA) | payer OTHER, SELFPAY | PROVIDERS: PCP Physician Assistant; Visit Provider Physician Assistant | DX: I10 Essential (primary) hypertension (principal); M54.50 Low back pain, unspecified; G89.29 Other chronic pain; K62.5 Hemorrhage of anus and rectum; Z86.19 Personal history of other infectious and parasitic diseases | CPT/HCPCS: 99212 ==

== ENCOUNTER 2024-12-10 10:15 | Outpatient (REF) | payer OTHER, SELFPAY ==
[2024-12-10 11:08] LABS: MANUAL DIFF FLAG NO
[2024-12-10 12:19] LABS: Hematocrit 40.2 % (42.0-52.0); Hemoglobin 14.0 g/dl (14.0-18.0); Imm Gran Abs Auto 0.04 X10*3/uL (0.00-0.03); Imm Gran Pct Auto 0.8 % (0.0-0.4); Lymphocytes Absolute Auto 2.2 X10*3/uL (1.2-4.9); Mean Corpuscular HGB Conc 34.8 g/dl (31.0-36.0); Mean Corpuscular Hemoglobin 28.9 pg (27.0-33.0); Mean Corpuscular Volume 83.1 fL (80.0-98.0); NRBC Abs Auto 0.000 X10*3/uL (0.0-0.012); NRBC Pct Auto 0.0 /100WBC (0.0-0.2); Platelet Count 300 X10*3/uL (160-400); Red Blood Count 4.84 X10*6/uL (4.60-5.80); White Blood Count 4.9 X10*3/uL (4.8-10.8)
[2024-12-10 12:47] LABS: Alanine Aminotransferase 38 U/L (0-40); Albumin Level 4.6 g/dL (3.5-5.0); Alkaline Phosphatase 59 U/L (39-117); Anion Gap 11 (12-20); Aspartate Amino Transferase 31 U/L (5-37); Blood Urea Nitrogen 10 mg/dL (9-16); Calcium 9.0 mg/dL (8.4-10.2); Carbon Dioxide 26 mmol/L (22-29); Chloride 104 mmol/L (96-108); Estimated Glomerular Filt Rate > 60; Potassium 3.9 mmol/L (3.3-5.1); Sodium 137 mmol/L (135-145); Total Protein 7.1 g/dL (6.5-8.0)
== END 2024-12-10 10:16 | disposition home or self-care (01) ==
LOC: HO.LAB 10:15
PROVIDERS: PCP Physician Assistant; Visit Provider Nurse Practitioner
DX: Z01.818 Encounter for other preprocedural examination (principal); K62.5 Hemorrhage of anus and rectum; F10.91 Alcohol use, unspecified, in remission; F12.90 Cannabis use, unspecified, uncomplicated; Z86.19 Personal history of other infectious and parasitic diseases; Z79.899 Other long term (current) drug therapy
CPT/HCPCS: 36415; 80053; 85025; 99212

== ENCOUNTER 2024-12-10 10:15 | Outpatient (AMB) | payer OTHER, SELFPAY ==
--- NOTE | 2024-12-10 10:19 | MHC.OFFVIS ---
Vital Signs 12/10/24 10:23 Height 5 ft 8 in Weight 175 lb 0.752 oz BMI 26.6 BP 122/77 Blood Pressure Location Lt brachial Position Sitting Pulse 69 Intake Visit Reasons: Hemorrhage anus & rectum Intake Note: Patient is seen in office for hemorrhage of the anus and rectum. Pt c/o: per pt went to ED at [facility] for this issue was hospitalized for 3 days due to bleeding, states currently bm are good, no longer has bleeding, is currently on antbx for jaw infection Flight Dynamicist Required: No Accompanied by: Self / Same As Patient Allergies fentanyl (Fentanyl) Allergy (Unknown, Verified 12/10/24 10:29) SWELLING HPI HPI Hemorrhage anus & rectum: Details: Assessment & Plan (1) Pre-op examination: Code(s): Z01.818 - Encounter for other preprocedural examination Plan: He had a prior colonoscopy with Dr. Hampton that was performed for diarrhea and was normal. Now has only occasional diarrhea when he eats too much salad. He denies any bowel or upper GI problems. There are no prior problems with anesthesia or sedation. He denies any cardiac or respiratory problems. He had Hep C with tx and successful SVR. There is no known FHX of crc or polyps. COLONOSCOPY 01/16/2018-ANGELA (INDICATION HEMATOCHEZIA AND DIARRHEA) THE ASCENDING COLON, TRANSVERSE COLON, DESCENDING COLON APPEARED NORMAL WITHOUT ANY OBVIOUS SIGNS OF COLITIS. RANDOM BIOPSIES WERE OBTAINED IN THE ASCENDING COLON. THE SIGMOID COLON DID HAVE SOME CHANGES OF EDEMA AND ERYTHEMA, BUT NO DEFINITIVE EVIDENCE OF COLITIS. THERE WAS NO PARTICULAR MUCOSAL FRIABILITY. BIOPSIES WERE OBTAINED. IN THE RECTUM, THE SCOPE WAS RETROFLEXED VISUALLY NORMAL RECTAL MUCOSA, BUT NO SIGNS OF ANY PROCTITIS. THERE WERE SMALL INTERNAL HEMORRHOIDS NOTED. THE SCOPE WAS STRAIGHTENED OUT AND WITHDRAWN FROM THE PATIENT. THE PATIENT TOLERATED THE PROCEDURE WELL. * BIOPSY A. Space colon, ascending, biopsies: Fragments of unremarkable colon mucosa. There is no evidence of colitis seen. B. Space colon, sigmoid, biopsies: Fragments of unremarkable colonic mucosa. There is no evidence of colitis seen. TODAY'S VISIT No labs since 2022. He had a prior colonoscopy for the same indication in [address] Hampton that was normal He says that he never received a call the schedule a colonoscopy. Recently, in September he had lower abdominal pain and cramping and passed a copious amount of red blood that filled the toilet bowl. He presented to the [facility] ER and is admitted for 3 days. Cat scan showed a question of thickening of the distal sigmoid the could be related diverticular disease but no outright stranding or infection at that time. We do not have the discharge summary only the ER report so it is uncertain what he is treated for that 3 day period. He denies any bowel or upper GI problems. There are no prior problems with anesthesia or sedation. He denies any cardiac or respiratory problems. He had Hep C with tx and successful SVR. There is no known FHX of crc or polyps. [facility] Medical History (Updated 12/10/24 @ 10:51 by ANA Luna) Annual physical exam Colon cancer screening Surgical History History of root canal procedure S/P pyloromyotomy, follow-up exam H/O: knee surgery H/O laminectomy Social History Housing: Apartment Alcohol intake: former Year quit: 2018 Patient Tobacco Use Status: Former Tobacco user e-Cigarette/Vaping Use: Never Used Second Hand Smoke Exposure: Yes Substance Use Type: Marijuana service: No Current occupational status: employed Current occupation: Seasonal employee- [employer] Cognitive needs: No Hearing needs: No Vision needs: No Review of Systems Const Denies fatigue, Denies fever(s), Denies night sweats, Denies poor appetite and Denies weight loss ENT Reports Normal hearing present, Denies dysphagia, Denies odynophagia, Denies throat swelling and Denies tongue swelling Card Reports no additional complaints Resp Reports no additional complaints GI Details: Denies abdominal pain, Denies melena, Denies bloating, Reports hematochezia, Denies constipation, Reports GI cramping, Denies dysphagia, Denies excessive flatus, Denies early satiety, Denies heartburn, Reports diarrhea, Denies nausea, Denies odynophagia, Denies vomiting and Denies hematemesis Skin/Breast Denies pruritus, Denies lesions, Denies rash and Denies jaundice Neuro Reports Normal hearing present and Denies Abnormal speech present Endo Denies fatigue Aller/Immun Denies throat swelling and Denies tongue swelling Physical Exam Vital Signs: Last Vital Signs Pulse 69 12/10/24 10:23 BP 122/77 12/10/24 10:23 BMI result Body Mass Index 26.6 Const Other: Strong odor of cigarette smoke General: cooperative, no acute distress, well developed and well groomed Nutritional Appearance: average body habitus and well nourished Orientation/consciousness: oriented to person, oriented to place and oriented to time Limitations: No language barrier HEENT Head: Yes normocephalic and Yes atraumatic Eyes General: appearance normal, both eyes and all related structures Pupils: Equal, round and reactive pupils present Neck Neck: Yes normal visual inspection and Yes no lymphadenopathy Thyroid: Thyroid normal Resp Effort & Inspection: normal respiratory effort and able to speak in complete sentences Auscultation: clear to auscultation bilaterally Cardio Rate: regular rate Rhythm: regular rhythm Heart sounds: Normal, physiologic split S2 sound present Peripheral pulses: radial pulses present and posterior tibial pulses present GI Inspection: No distended and No Abdominal panniculus present Palpation (GI): Soft to palpation, nontender, no guarding, not rigid and No hepatosplenomegaly present Percussion: Yes normal to percussion Auscultation: normal bowel sounds Rectal Exam - Male: Yes deferred Abdomen image:  1. surgical scars 2. Skin General skin exam: no rashes or lesions noted, turgor normal, skin not dry, no jaundice, No spider nevi and no striae Rashes: no rashes Nails: normal Neuro General: oriented to person, oriented to place and oriented to time Cranial nerves: Yes Equal, round and reactive pupils present and Yes Normal hearing present Speech: No Abnormal speech present Extrem General: Yes normal to inspection, No clubbing, No cyanosis and No edema Psych Appearance: grossly normal and well kempt Mental Status: mental status grossly normal Speech and movement: Normal speech and movement present Affect: normal affect Attitude: cooperative Thought process: Normal thought process present and not confabulating Thought content: Normal thought content present Insight: Limited insight present (Psych) Judgement: Limited judgement present (Psych) Assessment & Plan Assessment & Plan (1) Pre-op examination: Code(s): Z01.818 - Encounter for other preprocedural examination Category: Medical (2) Bright red blood per rectum: Code(s): K62.5 - Hemorrhage of anus and rectum Category: Medical (3) Alcohol use disorder in remission: Code(s): F10.91 - Alcohol use, unspecified, in remission Category: Medical (4) Marijuana smoker: Code(s): F12.90 - Cannabis use, unspecified, uncomplicated Category: Medical (5) History of hepatitis C: Comment: Status post treatment - viral load showing SVR Code(s): Z86.19 - Personal history of other infectious and parasitic diseases Category: Medical Plan No labs since 2022. He had a prior colonoscopy for the same indication in [address] Hampton that was normal He says that he never received a call the schedule a colonoscopy. Recently, in September he had lower abdominal pain and cramping and passed a copious amount of red blood that filled the toilet bowl. He presented to the [facility] ER and is admitted for 3 days. Cat scan showed a question of thickening of the distal sigmoid the could be related diverticular disease but no outright stranding or infection at that time. We do not have the discharge summary only the ER report so it is uncertain what he is treated for that 3 day period. He denies any bowel or upper GI problems. There are no prior problems with anesthesia or sedation. He denies any cardiac or respiratory problems. He had Hep C with tx and successful SVR. There is no known FHX of crc or polyps. Orders: Orders Colonoscopy - GI Use Only Today K62.5 - Hemorrhage of anus and rectum, Z01.818 - Encounter for other preprocedural examination Comprehensive Met. Panel Today K62.5 - Hemorrhage of anus and rectum, Z01.818 - Encounter for other preprocedural examination Complete Blood Count Auto Diff Today K62.5 - Hemorrhage of anus and rectum, Z01.818 - Encounter for other preprocedural examination Medications: New sodium,potassium,mag sulfates 17.5-3.13-1.6 gram (Suprep Bowel Prep Kit) 480 mL orally; FOR COLONOSCOPY PREP 354 mL 0RF Coding Level of Care Code Est Pt Level 4 (61600) Diagnoses Pre-op examination Z01.818 Bright red blood per rectum K62.5 Alcohol use disorder in remission F10.91 Marijuana smoker F12.90 History of hepatitis C Z86.19 Time Spent (min) 36
[2024-12-10 10:23] VITALS: BP 122/77; PULSE 69; BMI 26.6
--- OUTSIDE RECORDS SUMMARY | 2024-12-10 11:05 | XMS_ITS | Clinical Summary ---
Author Organization [facility] Address [address] [place] [address] Phone Care Team Providers Care Virtual Customer Assistant Name Role Phone Pieter Moe Primary Care [...] EDT - 11/28/2024 1:20 PM EDT Emergency [facility] Emergency [address] [place] [address] Fei Aburto MD Dental infection (Primary Dx) Discharge Disposition: Home or Self Care 09/24/2024 8:38 AM EDT - 09/26/2024 5:07 PM EDT Hospital Encounter [facility] Medical Surgical Unit [address] [place] [phone] Tye Saravia MD Flores, Carlos M, MD [...] Signed Date: 11/28/2024 12:30 ET Workstation ID: [id number] Transcribed By: Self Edit Transcribed Date: 11/28/2024 [...] the upper cervical spine. Procedure Note Michael Radford MD - 11/28/2024 PROCEDURE: CT face INDICATION: [...] Signed Date: 11/28/2024 12:30 ET Workstation ID: [id number] Transcribed By: Self Edit Transcribed Date: 11/28/2024 12:26 ET us Fei Aburto MD IM CT PROCEDURES Final Result * Lactate, with reflex (11/28/2024 10:14 AM EDT) LACTIC ACID 1.4 0.4 - 2.0 mmol/L LAB CHEMISTRY METHOD 11/28/2024 11:06 AM EDT [facility] Blood Venous blood specimen / Unknown Venipuncture / Unknown 11/28/2024 10:14 AM EDT 11/28/2024 10:35 AM EDT us Fei Aburto MD LAB BLOOD ORDERABLES Final Resu lt [facility] [address] [place] [address], * (ABNORMAL) CBC auto differential (11/28/2024 10:14 AM EDT) Only the most recent of4 resultswithin the time period is included. WBC 11.3(H) 4.8 - 10.8 K/mcL LAB HEMETOLOGY METHOD 11/28[facility]24 10[facility] RBC 5.10 4.50 - 5.50 M/[facility] LAB HEMETOLOGY METHOD 11/28/2024 10:48 AM EDT [facility] Hemoglobin 15.3 13.5 - 17.5 g/dL LAB HEMETOLOGY METHOD 11/28/2024 10:48 [facility] Hematocrit 42.6 42.0 - 54.0 % LAB HEMETOLOGY METHOD 11/28/2024 10:48 AM EDT [facility] MCV 82.9 79.0 - 98.0 FL LAB HEMETOLOGY METHOD 11/28/2024 10:48 AM EDT [facility] MCH 29.8 27.0 - 32.0 pcg LAB HEMETOLOGY METHOD 11/28/2024 10:48 AM EDT [facility] MCHC 35.9 32.0 - 37.0 g/dL LAB HEMETOLOGY METHOD 11/28/2024 10:48 [facility] RDW 12.9 11.0 - 15.0 % LAB HEMETOLOGY METHOD 11/28/2024 10:48 AM [facility] Platelets 215 130 - 400 K/mcL LAB HEMETOLOGY METHOD 11/28/2024 10:48 AM [facility] MPV 9.6 7.0 - 11.0 FL LAB HEMETOLOGY METHOD 11/28/2024 10:48 AM [facility] NRBC 0.0 <1.0 % LAB HEMETOLOGY METHOD 11/28/2024 10:48 AM [facility] NRBC Absolute 0.00 <0.10 K/mcL LAB HEMETOLOGY METHOD 11/28/2024 10:48 AM [facility] Neutrophils Relative 76.4 % LAB HEMETOLOGY METHOD 11/28/2024 10:48 AM [facility] Lymphocytes Relative 14.1 % LAB HEMETOLOGY METHOD 11/28/2024 10:48 AM [facility] Monocytes Relative 8.7 % LAB HEMETOLOGY METHOD 11/28/2024 10:48 AM [facility] Eosinophils Relative 0.2 % LAB HEMETOLOGY METHOD 11/28/2024 10:48 AM [facility] Basophils Relative 0.2 % LAB HEMETOLOGY METHOD 11/28/2024 10:48 AM [facility] Immature Granulocytes Relative 0.4 % LAB HEMETOLOGY METHOD 11/28/2024 10:48 AM [facility] Neutrophils Absolute 8.67(H) 1.50 - 7.00 K/mcL LAB HEMETOLOGY METHOD 11/28/2024 10:48 AM [facility] Lymphocytes Absolute 1.60 1.00 - 5.00 K/mcL LAB HEMETOLOGY METHOD 11/28/2024 10:48 AM [facility] Monocytes Absolute 0.99 0.20 - 1.00 K/mcL LAB HEMETOLOGY METHOD 11/28/2024 10:48 AM EDT [facility] Eosinophils Absolute 0.02 0.00 - 0.50 K/[facility] LAB HEMETOLOGY METHOD 11/28/2024 10:48 AM EDT [facility] Basophils Absolute 0.02 0.00 - 0.20 K/[facility] LAB HEMETOLOGY METHOD 11/28/2024 10:48 AM EDT [facility] Immature Granulocytes Absolute 0.04(H) 0.00 - 0.03 K/[facility] LAB HEMETOLOGY METHOD 11/28/2024 10:48 AM EDT [facility] Blood Venous blood specimen / Unknown Venipuncture / Unknown 11/28/2024 10:14 AM EDT 11/28/2024 10:36 AM EDT Fei Aburto MD LAB BLOOD ORDERABLES Final Resu lt Performing Organization Address City/[facility]/ZIP Co de Phone Number [facility] [address] [place] [address], [place] [phone] * Culture blood (11/28/2024 10:14 AM EDT) Only the most recent of2 resultswithin the time period is included. Culture, Blood No growth at 5 days 12/03/2024 11:01 AM EDT [facility] Blood Venous blood specimen / Unknown Venipuncture / Unknown 11/28/2024 10:14 AM EDT 11/28/2024 10:33 AM EDT Fei Aburto MD LAB MICROBIOLOGY - GENERAL ORDE RABLES Final Result Performing Organization Address [facility]/ZIP Co de Phone Number [facility] [address] [place] [address], [place] [phone] * (ABNORMAL) Basic metabolic panel (11/28/2024 10:14 AM EDT) Only the most recent of3 resultswithin the time period is included. Sodium 138 133 - 145 mmol/L LAB CHEMISTRY METHOD 11/28/2024 11:23 AM [facility] Potassium 3.6 3.5 - 5.5 mmol/L LAB CHEMISTRY METHOD 11/28/2024 11:23 AM [facility] Chloride 104 96 - 110 mmol/L LAB CHEMISTRY METHOD 11/28/2024 11:23 AM [facility] CO2 28 21 - 32 mmol/L LAB CHEMISTRY METHOD 11/28/2024 11:23 AM [facility] Anion Gap 6 3 - 11 LAB CHEMISTRY METHOD 11/28/2024 11:23 AM [facility] Glucose 117(H) 70 - 100 mg/dL LAB CHEMISTRY METHOD 11/28/2024 11:23 AM [facility] BUN 7 5 - 25 mg/dL LAB CHEMISTRY METHOD 11/28/2024 11:23 AM [facility] Creatinine 0.82 0.70 - 1.30 mg/dL LAB CHEMISTRY METHOD 11/28/2024 11:23 AM [facility] eGFR 106 >=60 mL/min/1. 73m2 LAB CHEMISTRY METHOD 11/28/2024 11:23 AM [facility] Comment:Calculation based on the Chronic Kidney Disease Epidemiology Collaboration (CKD-EPI) equation refit without adjustment for race. BUN/Creatinine Ratio 8.5 LAB CHEMISTRY METHOD 11/28/2024 11:23 AM [facility] Calcium 8.8 8.5 - 10.5 mg/dL LAB CHEMISTRY METHOD 11/28/2024 11:23 AM [facility] Blood Venous blood specimen / Unknown Venipuncture / Unknown 11/28/2024 10:14 AM EDT 11/28/2024 10:36 AM EDT us Fei Aburto MD LAB BLOOD ORDERABLES Final Resu lt Performing Organization Address [facility]/ZIP Co de Phone Number [facility] [address] [place] [address], [place] [phone] * (ABNORMAL) Phosphorus (09/26/2024 6:12 AM EDT) Phosphorus 2.2(L) 2.5 - 4.5 mg/dL LAB CHEMISTRY METHOD 09/26/2024 7:38 AM EDT [facility] Blood Venous blood specimen / Unknown Venipuncture / Unknown 09/26/2024 6:12 AM EDT 09/26/2024 6:37 AM EDT Marjorie ENGLISH LAB BLOOD ORDERABLES Final Res ult Performing Organization Address [facility] de Phone Number [facility] [address] [place] [address], [place] [phone] * Magnesium (09/26/2024 6:12 AM EDT) Only the most recent of2 resultswithin the time period is included. [facility] Magnesium 2.1 1.9 - 2.6 mg/dL LAB CHEMISTRY METHOD 09/26/2024 7:38 AM EDT [facility] Blood Venous blood specimen / Unknown Venipuncture / Unknown 09/26/2024 6:12 AM EDT 09/26/2024 6:37 AM EDT Marjoriesa Vadim ENGLISH LAB BLOOD ORDERABLES Final Res ult Performing Organization Address [facility] Co de Phone Number [facility] [address] [place] [address], [place] [phone] * (ABNORMAL) Occult blood stool, guaiac (09/25/2024 11:36 AM EDT) [facility] Occult Blood, Stool #1 Positive( A) Negative 09/25/2024 11:58 AM EDT [facility] Stool Rectum structure / Unknown Non-blood Collection / Unknown 09/25/2024 11:36 AM EDT 09/25/2024 11:44 AM EDT us Anna Figueroa SENIOR ENVIRONMENTAL TECHNICIAN LAB BODY FLUIDS AND STOO LS ORDERABLES Final Result [facility] [address] [place] [address], [place] [phone] * Gastrointestinal pathogens molecular study (09/25/2024 11:36 AM EDT) Campylobacter Detection by PCR Not Detected Not Detected LAB MICROBIOLOGY METHOD 5 6:38 PM EDT [facility] Plesiomonas shigelloides Detection by PCR Not Detected Not Detected LAB MICROBIOLOGY METHOD 5 6:38 PM EDT [facility] Salmonella Detection by PCR Not Detected Not Detected LAB MICROBIOLOGY METHOD 5 6:38 PM EDT [facility] Vibrio Detection by PCR Not Detected Not Detected LAB MICROBIOLOGY METHOD 5 6:38 PM EDT [facility] Vibrio cholerae Detection by PCR Not Detected Not Detected LAB MICROBIOLOGY METHOD 5 6:38 PM EDT [facility] Yersinia enterocolitica Detection by PCR Not Detected Not Detected LAB MICROBIOLOGY METHOD 5 6:38 PM EDT [facility] Enteroaggregative E coli EAEC Detection by PCR Not Detected Not Detected LAB MICROBIOLOGY METHOD 5 6:38 PM EDT [facility] Enteropathogenic E coli EPEC Detection Not Detected Not Detected LAB MICROBIOLOGY METHOD 5 6:38 PM EDT [facility] Enterotoxigenic E coli ETEC LTST Detection Not Detected Not Detected LAB MICROBIOLOGY METHOD 5 6:38 PM EDT [facility] Shiga-like toxin producing E coli STEC STX1 STX2 Det Not Detected Not Detected LAB MICROBIOLOGY METHOD 5 6:38 PM EDT [facility] Shigella Enteroinvasive E coli EIEC Detection Not Detected Not Detected LAB MICROBIOLOGY METHOD 5 6:38 PM EDT [facility] Cryptosporidium Detection by PCR Not Detected Not Detected LAB MICROBIOLOGY METHOD 5 6:38 PM EDT [facility] Cyclospora cayetanensis Detection by PCR Not Detected Not Detected LAB MICROBIOLOGY METHOD 5 6:38 PM EDT [facility] Entamoeba histolytica Detection by PCR Not Detected Not Detected LAB MICROBIOLOGY METHOD 5 6:38 PM EDT [facility] Giardia lamblia Detection by PCR Not Detected Not Detected LAB MICROBIOLOGY METHOD 5 6:38 PM EDT [facility] Adenovirus F 40 41 Detection by PCR Not Detected Not Detected LAB MICROBIOLOGY [facility] 5 6:[facility] Astrovirus Detection by PCR Not Detected Not Detected LAB MICROBIOLOGY METHOD 5 6:38 [facility] Norovirus GI GII Detection by PCR Not Detected LAB MICROBIOLOGY METHOD 5 6:38 PM EDT [facility] Sapovirus Detection by PCR Not Detected Not Detected LAB MICROBIOLOGY METHOD 5 6:38 PM [facility] Rotavirus A Detection by PCR Not Detected Not Detected LAB MICROBIOLOGY METHOD 5 6:38 PM EDT [facility] Stool Rectum structure / Unknown Non-blood Collection / Unknown 09/25/2024 11:36 AM EDT 09/25/2024 5:20 PM EDT [facility] - 09/25/2024 6:38 PM EDT PCR [...] additional guidance. Testing Performed by MULTIPLEX[employer] PCR Anna Figueroa NP LAB MICROBIOLOGY - GENER AL ORDERABLES Final Result Performing Organization Address [facility] Co de Phone Number [facility] [address] [place] [address], [place] [phone] * (ABNORMAL) Hemoglobin and hematocrit (09/24/2024 9:56 PM EDT) [facility] Hemoglobin 12.5(L) 13.5 - 17.5 g/dL LAB HEMETOLOGY METHOD 09/24/2024 10:16 PM EDT [facility] Hematocrit 35.6(L) 42.0 - 54.0 % LAB HEMETOLOGY METHOD 09/24/2024 10:16 PM EDT [facility] Blood Venous blood specimen / Unknown Venipuncture / Unknown 09/24/2024 9:56 PM EDT 09/24/2024 10:09 PM EDT Anna Figueroa NP LAB BLOOD ORDERABLES Fin al Result Performing Organization Address [facility] de Phone Number [facility] [address] [place] [address], [place] [phone] * CT Angio Abdomen Pelvis wo and/or [...] is not excluded based on this exam. Debby ENGLISH ([id number]) -------- FINAL REPORT -------- Dictated By: Aby Varma Dictated Date: 09/24/2024 10:30 ET Assigned Physician: Aby Varma Reviewed and Electronically Signed By: Aby Varma Signed Date: 09/24/2024 10:41 ET Workstation ID: [id number] Transcribed By: Self Edit Transcribed Date: 09/24/2024 [...] pixel images were reviewed. DLP: 3245.92 mGy/cm PrePayer Iterative reconstruction technique Findings: The arterial tree [...] pixel images were reviewed. DLP: 3245.92 mGy/cm PrePayer Iterative reconstruction technique Findings: The arterial tree [...] excluded based on this exam. Telerad PA ([id number]) -------- FINAL REPORT -------- Dictated By: Aby Varma Dictated Date: 09/24/2024 10:30 ET Assigned Physician: Aby Varma Reviewed and Electronically Signed By: Aby Varma Signed Date: 09/24/2024 10:41 ET Workstation ID: [id number] Transcribed By: Self Edit Transcribed Date: 09/24/2024 10:30 ET us Tye Saravia MD IMG CT PROCEDURES Final Result * Type and screen (09/24/2024 7:45 AM EDT) ABO Group O 09/24/2024 9:03 AM EDT [facility] Rh Type Positive 09/24/2024 9:03 AM EDT [facility] Antibody Screen Negative 09/24/2024 9:03 AM EDT [facility] Blood Venous blood specimen / Unknown Venipuncture / Unknown 09/24/2024 7:45 AM EDT 09/24/2024 8:17 AM EDT us Tye Saravia MD LAB BLOOD BANK TEST ORDERABLES Final Result [facility] [address] [place] [address], [place] [phone] * Lipase (09/24/2024 7:45 AM EDT) Lipase 18 13 - 75 unit/L LAB CHEMISTRY METHOD 09/24/2024 8:48 AM EDT [facility] Blood Venous blood specimen / Unknown Venipuncture / Unknown 09/24/2024 7:45 AM EDT 09/24/2024 8:16 AM EDT Tye Saravia MD LAB BLOOD ORDERABLES Final Resu lt Performing Organization Address City/[facility]/ZIP Co de Phone Number [facility] [address] [place] [address], [place] [phone] * Hemoglobin A1c (09/24/2024 7:45 AM EDT) Hemoglobin A1C 5.3 <6.5 % LAB CHEMISTRY METHOD 09/24/2024 8:49 PM EDT [facility] Mean Bld Glu Estim. 105 mg/dL LAB CHEMISTRY METHOD 09/24/2024 8:49 PM EDT [facility] Blood Venous blood specimen / Unknown Venipuncture / Unknown 09/24/2024 7:45 AM EDT 09/24/2024 8:17 AM EDT Anna Figueroa NP LAB BLOOD ORDERABLES Fin al Result Performing Organization Address [facility] Co de Phone Number [facility] [address] [place] [address], [place] [phone] * Ethanol (09/24/2024 7:45 AM EDT) Ethanol Level <3 0 - 10 mg/dL LAB CHEMISTRY METHOD 09/24/2024 2:38 PM EDT [facility] Blood Venous blood specimen / Unknown Venipuncture / Unknown 09/24/2024 7:45 AM EDT 09/24/2024 8:16 AM EDT Anna Figueroa NP LAB BLOOD ORDERABLES Fin al Result Performing Organization Address City/[facility]/ZIP Co de Phone Number [facility] [address] [place] [address], [place] [phone] * (ABNORMAL) Comprehensive metabolic panel (09/24/2024 7:45 AM EDT) [facility] Signature Sodium 139 133 - 145 mmol/L LAB CHEMISTRY METHOD 09/24/2024 8:48 AM [facility] Potassium 3.6 3.5 - 5.5 mmol/L LAB CHEMISTRY METHOD 09/24/2024 8:48 AM [facility] Chloride 104 96 - 110 mmol/L LAB CHEMISTRY METHOD 09/24/2024 8:48 AM [facility] CO2 30 21 - 32 mmol/L LAB CHEMISTRY METHOD 09/24/2024 8:48 AM [facility] Anion Gap 5 3 - 11 LAB CHEMISTRY METHOD 09/24/2024 8:48 AM [facility] Glucose 127(H) 70 - 100 mg/dL LAB CHEMISTRY METHOD 09/24/2024 8:48 AM [facility] BUN 11 5 - 25 mg/dL LAB CHEMISTRY METHOD 09/24/2024 8:48 AM [facility] Creatinine 0.73 0.70 - 1.30 mg/dL LAB CHEMISTRY METHOD 09/24/2024 8:48 AM [facility] eGFR 109 >=60 mL/min/1. 73m2 LAB CHEMISTRY METHOD 09/24/2024 8:48 AM [facility] Comment:Calculation based on the Chronic Kidney Disease Epidemiology Collaboration (CKD-EPI) equation refit without adjustment for race. BUN/Creatinine Ratio 15.1 LAB CHEMISTRY METHOD 09/24/2024 8:48 AM [facility] Calcium 8.7 8.5 - 10.5 mg/dL LAB CHEMISTRY METHOD 09/24/2024 8:48 AM [facility] AST (SGOT) 47(H) 10 - 42 unit/L LAB CHEMISTRY METHOD 09/24/2024 8:48 AM [facility] ALT (SGPT) 67(H) 10 - 60 unit/L LAB CHEMISTRY METHOD 09/24/2024 8:48 AM EDT [facility] Alkaline Phosphatase 78 42 - 121 unit/L LAB CHEMISTRY METHOD 09/24/2024 8:48 AM EDT [facility] Total Protein 6.5 6.0 - 8.0 g/dL LAB CHEMISTRY METHOD 09/24/2024 8:48 AM EDT [facility] Albumin 3.8 3.2 - 5.0 g/dL LAB CHEMISTRY METHOD 09/24/2024 8:48 AM EDT [facility] Total Bilirubin 0.5 0.0 - 1.4 mg/dL LAB CHEMISTRY METHOD 09/24/2024 8:48 AM EDT [facility] Blood Venous blood specimen / Unknown Venipuncture / Unknown 09/24/2024 7:45 AM EDT 09/24/2024 8:16 AM EDT us Tye Saravia MD LAB BLOOD ORDERABLES Final Resu lt [facility] [address] [place] [address], from Last 3 Months Insurance [facility] [facility] Advance Directives * Full Code - [...] currently active code status orders. Care Teams Virtual Customer Assistant Relationship Specialty Start Date End Date Pieter Moe PA [address] [place] [phone] PCP - General Physician [employer] 02/28/24
--- OUTSIDE RECORDS SUMMARY | 2024-12-10 11:05 | XMS_ITS | Patient Health Record ---
Author Organization [facility] Address [address] [place] [phone] Care Team Providers Care Jewel Bearing Polisher Name Role Phone NONE, NONE Primary Care Provider Hector Ashraf [phone] Allergies Allergen (clinical drug ingredient) Drug/Non Drug [...] Problem Status W/U Status Risk Notes Problem [id number] Chronic hepatitis C without hepatic coma (B18.2) [...] Insured Coverage Start Date Coverage End Date [facility] [address] [address] [place], [place] [id number] ARON GARCIA Self - patient is the insured MEDICAID OF [employer] [address] [place] [address] [id number] ARON GARCIA Self - patient is the insured Medical (General) History Medical History History ICD Code Hepatitis C--describes a anna er biopsy at [facility] > 20 years ago--never been treated; Hep C Genotype 1A, fibrosis score of F2 in 2017, normal alpha-fetoprotein level in 2016, and ultrasound consistent with a solitary hemangioma with elastography of F2. Finished 12 weeks of Epclusa in 11/2017--Hep C was neg. in 10/2017 with normal LFT's Denies KS,DM,CVA,Lung disease,renal dise ase EtOH abuse--last drank in 12/2016 Substance abuse--previous na titus cocaine, no IVDA---now only using marijuana daily Bipolar disease Reports HIV test was negative Surgical History Surgery Date(Month/Year) Back surgery 2006 Right knee
== END 2024-12-10 10:55 | disposition home or self-care (01) ==
LOC: HO.HGI 10:16
PROVIDERS: PCP Physician Assistant; Visit Provider Nurse Practitioner
DX: Z01.818 Encounter for other preprocedural examination (principal); Z12.11 Encounter for screening for malignant neoplasm of colon; K62.5 Hemorrhage of anus and rectum; F10.91 Alcohol use, unspecified, in remission; F12.90 Cannabis use, unspecified, uncomplicated; Z86.19 Personal history of other infectious and parasitic diseases
CPT/HCPCS: 99214

== ENCOUNTER 2025-01-15 12:45 | Outpatient (AMB) | payer OTHER, SELFPAY ==
[2025-01-15 12:50] VITALS: BP 126/84; PULSE 89; O2SAT 97; BMI 26.5
--- NOTE | 2025-01-15 12:50 | MHC.PC.OV ---
Vital Signs 01/15/25 12:50 Height 5 ft 8 in Weight 174 lb 6 oz BMI 26.5 BP 126/84 Blood Pressure Location Rt brachial Position Sitting Pulse 89 Pulse Source Pulse Oximeter Pulse Oximetry (%) 97 Oxygen Delivery Method Room Air Intake Visit Reasons: 6 weeks f/u blood pressure check Karate Black Belt Required: No Accompanied by: Self / Same As Patient Allergies fentanyl (Fentanyl) Allergy (Unknown, Verified 01/15/25 13:13) SWELLING Medication List - Last Reconciled 01/15/25 by Pieter Moe PA-C clindamycin HCl 450 mg PO TID lisinopril 5 mg PO DAILY 30 days sodium,potassium,mag sulfates 17.5-3.13-1.6 gram (Suprep Bowel Prep Kit) 480 mL orally; FOR COLONOSCOPY PREP Tobacco use date assessed: 01/15/25 Dental Screening Dental Screen Date: 01/15/25 Did you have a dental visit in the last 12 months?: Yes Did you have a dental problem in the last 6 months where you did not have access to dental care?: No Was dental information given to patient?: Patient has dentist HPI 6 weeks f/u blood pressure check HPI Details Patient is a 54-year-old male here today for blood pressure follow up. At last visit we discussed his elevation in his blood pressure we started lisinopril 5 mg. He believes the reason for his elevation in his blood pressure was due to dental pain he was having at the time. He reports he took lisinopril for 1 month though over the last week he has not been taking the medication as he has not had a refill. Today's blood pressure acceptable in office. You would like to try to work on lifestyle and dietary modifications to control his blood pressure. Will hold off on lisinopril for now and continue monitoring blood pressure at home. He understands his blood pressure is to be below 140/90 consistently [facility] Medical History (Updated 12/10/24 @ 10:51 by ANA Luna) Annual physical exam Colon cancer screening Surgical History History of root canal procedure S/P pyloromyotomy, follow-up exam H/O: knee surgery H/O laminectomy Social History Housing: Apartment Alcohol intake: former Year quit: 2018 Patient Tobacco Use Status: Former Tobacco user e-Cigarette/Vaping Use: Never Used Second Hand Smoke Exposure: Yes Substance Use Type: Marijuana service: No Current occupational status: employed Current occupation: Seasonal employee- [employer] Cognitive needs: No Hearing needs: No Vision needs: No Questionnaire Thrive Questionnaire Date Thrive assessed: 06/04/24 I am a: Patient What is your living situation today?: I have a steady place to live Within the past 12 months, did the food you bought not last and you didn't have the money to get more?: I choose not to answer this question Within the past 12 months, did you worry whether your food would run out before you got money to buy more?: I choose not to answer this question Do you have trouble paying for medicines?: No Do you have trouble getting transportation to medical appointments?: No Do you have trouble paying your heating and electricity bill?: No Do you have trouble taking care of your child, family member or friend?: No Do you have trouble with day-to-day activities such as bathing, preparing meals, shopping, managing finances, etc.?: No Are you currently unemployed and looking for a job?: I choose not to answer this question Are you interested in more education?: I choose not to answer this question Please select the resources that you would like help with: None THRIVE Score: 0 AUDIT C Alcohol Use Questionnaire (AUDIT-C) 1. How often do you have a drink containing alcohol?: Never 3. How often do you have six or more drinks on one occasion?: Never Total Score: 0 ELEANOR-7 AMB Questionnaire ELEANOR-7 Date ELEANOR - 7 assessed: 06/04/24 Source: Developed by Drs. Hector Terry, Toya Mccray, Rupert Roy and colleagues, with an educational jose from [employer] Review of Systems Const Denies headache(s) Eyes Denies loss of vision ENT Denies vertigo, Denies dizziness, Denies headache(s) and Denies sore throat Card Denies chest pain, Denies leg edema and Denies lightheadedness Resp Denies cough, Denies hemoptysis and Denies wheezing GI Denies abdominal pain, Denies melena, Denies constipation, Denies diarrhea and Denies vomiting Denies dysuria, Denies urinary frequency and Denies urinary urgency Musc Denies arthralgias, Denies joint swelling, Denies numbness and Denies tingling Neuro Denies Abnormal speech present, Denies behavioral changes, Denies vertigo, Denies dizziness, Denies headache(s), Denies loss of vision, Denies memory loss, Denies numbness and Denies tingling Psych Denies anxiety, Denies behavioral changes, Denies depression, Denies memory loss and Denies panic attacks Herber/Lymph Denies easy bleeding and Denies easy bruising Aller/Immun Denies wheezing Physical exam (Primary Care) Vital Signs: Last Vital Signs Pulse 89 01/15/25 12:50 BP 126/84 01/15/25 12:50 Pulse Ox 97 01/15/25 12:50 Oxygen Delivery Method Room Air 01/15/25 12:50 BMI result Body Mass Index 26.5 Tobacco/Smoking Status: Tobacco use Status Tobacco use date assessed 01/15/25 01/15/25 12:56 Patient Tobacco Use Status Former Tobacco user 01/15/25 12:56 e-Cigarette/Vaping Use Never Used 01/15/25 12:56 Thrive Assessment: Date of Thrive Assessment Date Thrive assessed 06/04/24 01/15/25 12:56 Const General: healthy appearing, no acute distress, alert and awake Nutritional Appearance: well nourished Orientation/consciousness: oriented to person, oriented to place and oriented to time HENMT Ears: TM's normal bilaterally General nose exam: Normal nasal mucous membranes and turbinates present Eyes Conjunctivae: conjunctivae normal Sclerae: sclerae normal Pupils: Equal, round and reactive pupils present Neck Neck: Yes no lymphadenopathy and Yes no JVD Thyroid: Thyroid normal Carotids: no bruits Resp Effort & Inspection: normal respiratory effort and not tachypneic Auscultation: no crackles, no rales, no rhonchi and no wheezes Cardio Rate: regular rate Rhythm: regular rhythm Heart sounds: no murmurs and normal S1 and S2 GI Palpation (GI): Soft to palpation, nontender, no hepatomegaly and no splenomegaly Auscultation: normal bowel sounds Skin General skin exam: no rashes or lesions noted and dry skin Neuro General: oriented to person, oriented to place and oriented to time Cranial nerves: Yes Equal, round and reactive pupils present Speech: No Abnormal speech present Gait exam (Neuro): Normal gait present Motor exam (neuro): no tremor noted Extrem Right upper extremity: full ROM Left upper extremity: full ROM Right lower extremity: full ROM; no edema Left lower extremity: full ROM; no edema Psych Mental Status: mental status grossly normal Speech and movement: Normal speech and movement present Affect: normal affect Attitude: cooperative Thought process: Normal thought process present Coding Level of Care Code Est Pt Level 3 (60267) Diagnoses Primary hypertension I10 Hypertension type: primary hypertension Assessment & Plan Assessment & Plan (1) HTN (hypertension): Code(s): I10 - Essential (primary) hypertension Category: Medical Qualifiers: Hypertension type: primary hypertension Qualified Code(s): I10 - Essential (primary) hypertension Plan: Patient has not been taking lisinopril over the last week as he has ran out and did not have of a referral from the pharmacy. Blood pressure today in office acceptable. He reports his blood pressure was likely elevated due to heavy pain from a dental issue. Will hold off on lisinopril for now and continue monitoring blood pressure at home. Goal blood pressures to be below 140/90 Orders: Orders Microalbumin, Random (w Creat) Today I10 - Essential (primary) hypertension Complete Blood Count no Diff Today I10 - Essential (primary) hypertension Comprehensive [place]. Panel Fast Today I10 - Essential (primary) hypertension Prostate Specific Antigen Scr Today I10 - Essential (primary) hypertension, Z12.5 - Encounter for screening for malignant neoplasm of prostate Medications: On Hold lisinopril Hold Comment: Doctor's Order 5 mg PO DAILY 30 tabs 1RF 30 days I10 - Essential (primary) hypertension
--- OUTSIDE RECORDS SUMMARY | 2025-01-15 14:15 | XMS_ITS | Clinical Summary ---
Author Organization [facility] Address [address] [place] [address] Phone Care Team Providers Care Autobody Technician Name Role Phone Pieter Moe Primary Care Provider [phone] Allergies Active Allergy Reactions Criticality Noted Date Comments Fentanyl Hcl Hives 02/28/2024 Medications cyclobenzaprine (FLEXERIL) 10 mg tablet Take 1 tablet (10 mg total) by mouth 2 (two) times a day if needed for muscle spasms for up to 10 days. 20 tablet Active Additional Information Patient not taking.Reported on 09/24/2024 amLODIPine (NORVASC) 5 mg tablet Take 1 tablet (5 mg total) by mouth 1 (one) time each day. 30 each 5 09/28/19 26 Active Active Problems Problem Noted Date Diagnosed Date Diverticulitis 09/26/2024 Gastrointestinal hemorrhage, unspecified gastrointestinal hemorrhage type 09/25/2024 Resolved Problems Problem Noted Date Diagnosed Date Resolved Date Lower GI bleed 09/24/2024 09/26/2024 Encounters Date Type Department Care Team Description 11/28/2024 10:46 AM EDT - 11/28/2024 1:20 PM EDT Emergency [facility] [address] [place] [address] Fei Aburto MD Dental infection [...] Safety Answer Date Record ed Physical Abuse Unrecognized value 09/24/2024 Verbal Abuse Unrecognized value 09/24/2024 Sex and Gender Information Value Date [...] 03/14/2022 Social Influencers of Health Screening 03/14/2022 Depression Screening 04/16/2024 COVID-19 Vaccine (2 - 2024-2 6 season) 2024 02/19/2021 Influenza Vaccine (#1) 2024 02/15/2023 Colorectal Cancer Screening: Stool Based Tests (FOBT/FIT) 09/25/2025 09/25/2024 DTaP,Tdap,and Td Vaccines (2 - Td or Tdap) 05/17/2026 05/17/2016 RSV Immunization Adult Patients (1 - 1-dose 75+ series) 02/15/2047 HIB Vaccines Aged Out No longer eligi [...] CULTURE BLOOD STAT 11/28/2024 10:14 AM EDT OCCULT BLOOD STOOL, GUAIAC Routine 09/25/2024 11:36 AM EDT from Last 3 Months or Most Recently Relevant to Health Maintenance Results * CT Maxillofacial w Contrast (11/28/2024 [...] Signed Date: 11/28/2024 12:30 ET Workstation ID: [id number] Transcribed By: Self Edit Transcribed Date: 11/28/2024 [...] Signed Date: 11/28/2024 12:30 ET Workstation ID: [id number] Transcribed By: Self Edit Transcribed Date: 11/28/2024 12:26 ET Fei Aburto MD IMG CT PROCEDURES Final Result * Lactate, with reflex (11/28/2024 10:14 AM EDT) Pathologist [facility] LACTIC ACID 1.4 0.4 - 2.0 mmol/L LAB CHEMISTRY METHOD 11/28/2024 11:06 AM EDT [facility] Blood Venous blood specimen / Unknown Venipuncture / Unknown 11/28/2024 10:14 AM EDT 11/28/2024 10:35 AM EDT Fei Aburto MD LAB BLOOD ORDERABLES Final Resu lt [facility] [address] [place] [address], [place] [phone] * (ABNORMAL) CBC auto differential (11/28/2024 10:14 AM EDT) Pathologist [facility] WBC 11.3(H) 4.8 - 10.8 [facility] LAB HEMETOLOGY METHOD 11/28/2024 10:48 AM EDT [facility] RBC 5.10 4.50 - 5.50 M/mcL LAB HEMETOLOGY METHOD 11/28/2024 10:48 AM T [facility] Hemoglobin 15.3 13.5 - 17.5 g/dL LAB HEMETOLOGY METHOD 11/28/2024 10:48 AM [facility] Hematocrit 42.6 42.0 - 54.0 % LAB HEMETOLOGY METHOD 11/28/2024 10:48 AM [facility] MCV 82.9 79.0 - 98.0 FL LAB HEMETOLOGY METHOD 11/28/2024 10:48 AM [facility] MCH 29.8 27.0 - 32.0 pcg LAB HEMETOLOGY METHOD 11/28/2024 10:48 AM [facility] MCHC 35.9 32.0 - 37.0 g/dL LAB HEMETOLOGY METHOD 11/28/2024 10:48 AM [facility] RDW 12.9 11.0 - 15.0 % LAB HEMETOLOGY METHOD 11/28/2024 10:48 AM [facility] Platelets 215 130 - 400 K/mcL LAB HEMETOLOGY METHOD 11/28/2024 10:48 AM [facility] MPV 9.6 7.0 - 11.0 FL LAB HEMETOLOGY METHOD 11/28/2024 10:48 AM [facility] NRBC 0.0 <1.0 % LAB HEMETOLOGY METHOD 11/28/2024 10:48 AM [facility] NRBC Absolute 0.00 <0.10 K/mcL LAB HEMETOLOGY METHOD 11/28/2024 10:48 AM [facility] Neutrophils Relative 76.4 % LAB HEMETOLOGY METHOD 11/28/2024 10:48 AM [facility] Lymphocytes Relative 14.1 % LAB HEMETOLOGY METHOD 11/28/2024 10:48 AM [facility] Monocytes Relative 8.7 % LAB HEMETOLOGY METHOD 11/28/2024 10:48 AM [facility] Eosinophils Relative 0.2 % LAB HEMETOLOGY METHOD 11/28/2024 10:48 AM [facility] Basophils Relative 0.2 % LAB HEMETOLOGY METHOD 11/28/2024 10:48 AM [facility] Immature Granulocytes Relative 0.4 % LAB HEMETOLOGY METHOD 11/28/2024 10:48 AM [facility] Neutrophils Absolute 8.67(H) 1.50 - 7.00 K/mcL LAB HEMETOLOGY METHOD 11/28/2024 10:48 AM [facility] Lymphocytes Absolute 1.60 1.00 - 5.00 K/mcL LAB HEMETOLOGY METHOD 11/28/2024 10:48 AM [facility] Monocytes Absolute 0.99 0.20 - 1.00 K/mcL LAB HEMETOLOGY METHOD 11/28/2024 10:48 AM [facility] Eosinophils Absolute 0.02 0.00 - 0.50 K/mcL LAB HEMETOLOGY METHOD 11/28/2024 10:48 AM [facility] Basophils Absolute 0.02 0.00 - 0.20 K/mcL LAB HEMETOLOGY METHOD 11/28/2024 10:48 AM [facility] Immature Granulocytes Absolute 0.04(H) 0.00 - 0.03 K/mcL LAB HEMETOLOGY METHOD 11/28/2024 10:48 AM [facility] Blood Venous blood specimen / Unknown Venipuncture / Unknown 11/28/2024 10:14 AM EDT 11/28/2024 10:36 AM EDT Fei Aburto MD LAB BLOOD ORDERABLES Final Resu lt Performing Organization Address City/[facility]/ZIP Co de Phone Number [facility] [address] [place] [address], [place] [phone] * Culture blood (11/28/2024 10:14 AM EDT) Only the most recent of2 resultswithin the time period is included. [facility] Culture, Blood No growth at 5 days 12/03/2024 11:01 AM EDT [facility] Blood Venous blood specimen / Unknown Venipuncture / Unknown 11/28/2024 10:14 AM EDT 11/28/2024 10:33 AM EDT Fei Aburto MD LAB MICROBIOLOGY - GENERAL ORDE RABLES Final Result Performing Organization Address [facility]/ZIP Co de Phone Number [facility] [address] [place] [address], [place] [phone] * (ABNORMAL) Basic metabolic panel (11/28/2024 10:14 AM EDT) [facility] Sodium 138 133 - 145 mmol/L LAB CHEMISTRY METHOD 11/28/2024 11:23 AM [facility] Potassium 3.6 3.5 - 5.5 mmol/L LAB CHEMISTRY METHOD 11/28/2024 11:23 AM [facility] Chloride 104 96 - 110 mmol/L LAB CHEMISTRY METHOD 11/28/2024 11:23 AM [facility] CO2 28 21 - 32 mmol/L LAB CHEMISTRY METHOD 11/28/2024 11:23 AM [facility] Anion Gap 6 3 - 11 LAB CHEMISTRY METHOD 11/28/2024 11:23 AM [facility] Glucose 117(H) 70 - 100 mg/dL LAB CHEMISTRY METHOD 11/28/2024 11:23 AM [facility] BUN 7 5 - 25 mg/dL LAB CHEMISTRY METHOD 11/28/2024 11:23 AM EDT [facility] Creatinine 0.82 0.70 - 1.30 mg/dL LAB CHEMISTRY METHOD 11/28/2024 11:23 AM EDT [facility] eGFR 106 >=60 mL/min/1. 73m2 LAB CHEMISTRY METHOD 11/28/2024 11:23 AM EDT [facility] Comment:Calculation based on the Chronic Kidney Disease Epidemiology Collaboration (CKD-EPI) equation refit without adjustment for race. BUN/Creatinine Ratio 8.5 LAB CHEMISTRY METHOD 11/28/2024 11:23 AM EDT [facility] Calcium 8.8 8.5 - 10.5 mg/dL LAB CHEMISTRY METHOD 11/28/2024 11:23 AM EDT [facility] Blood Venous blood specimen / Unknown Venipuncture / Unknown 11/28/2024 10:14 AM EDT 11/28/2024 10:36 AM EDT us Fei Aburto MD LAB BLOOD ORDERABLES Final Resu lt [facility] [address] [place] [address], [place] [phone] * (ABNORMAL) Occult blood stool, guaiac (09/25/2024 11:36 AM EDT) Occult Blood, Stool #1 Positive( A) Negative 09/25/2024 11:58 AM EDT [facility] Stool Rectum structure / Unknown Non-blood Collection / Unknown 09/25/2024 11:36 AM EDT 09/25/2024 11:44 AM EDT us Anna Figueroa NP LAB BODY FLUIDS AND STOO LS ORDERABLES Final Result [facility] [address] [place] [address], from Last 3 Months or Most Recently Relevant to Health Maintenance Insurance [facility] Advance Directives * Full Code [...] currently active code status orders. Care Teams Autobody Technician Relationship Specialty Start Date End Date Pieter Moe PA [address] [place] [address] PCP - General Physician Wood Science Professor 02/28/24
--- OUTSIDE RECORDS SUMMARY | 2025-01-15 14:15 | XMS_ITS | Patient Health Record ---
Author Organization [facility] Address [address] [place] [address] Care Team Providers Care Timekeeper Supervisor Name Role Phone NONE, NONE Primary Care Provider Hector Ashraf [phone] Allergies Allergen (clinical drug ingredient) Drug/Non Drug [...] Problem Status W/U Status Risk Notes Problem [id number] Chronic hepatitis C without hepatic coma (B18.2) [...] Insured Coverage Start Date Coverage End Date [email or web address] [facility] [address] [address] [place], [place] [id number] ARON GARCIA Self - patient is the insured MEDICAID OF [employer] [address] [place] [address] [id number] ARON GARCIA Self - patient is the insured Medical (General) History Medical History History ICD Code Hepatitis C--describes a anna er biopsy at [facility] > 20 years ago--never been treated; Hep C Genotype 1A, fibrosis score of F2 in 2017, normal alpha-fetoprotein level in 2016, and ultrasound consistent with a solitary hemangioma with elastography of F2. Finished 12 weeks of Epclusa in 11/2017--Hep C was neg. in 10/2017 with normal LFT's Denies LA,DM,CVA,Lung disease,renal dise ase EtOH abuse--last drank in 12/2016 Substance abuse--previous na titus cocaine, no IVDA---now only using marijuana daily Bipolar disease Reports HIV test was negative Surgical History Surgery Date(Month/Year) Back surgery 2006 Right knee
== END 2025-01-15 13:20 | disposition home or self-care (01) ==
LOC: HO.HMCH 12:46
PROVIDERS: PCP Physician Assistant; Visit Provider Physician Assistant
DX: I10 Essential (primary) hypertension (principal)

== ENCOUNTER → 2025-01-15 12:45 | Outpatient (BNVA) | payer OTHER, SELFPAY | PROVIDERS: PCP Physician Assistant; Visit Provider Physician Assistant | DX: I10 Essential (primary) hypertension (principal) | CPT/HCPCS: 99212 ==